=== PATIENT | male | born 1985 | race African-American/Black ===

== ENCOUNTER 2019-12-22 10:25 | Emergency (ER) | payer BC, MEDICAID, OTHER ==
[2019-12-22 10:43] VITALS: BP 213/136; PULSE 116
[2019-12-22] MEDS ORDERED: Ondansetron 4 MG/2 ML SDV IVPUSH ONE ×2 (10:48→14:17)
[2019-12-22] MEDS ORDERED: Sodium Chloride 0.9% 10 ML Syringe FLUSH PRN (10:48)
[2019-12-22] MEDS ORDERED: Sodium Chloride 0.9% 1,000 ML IV STA (10:48)
[2019-12-22] MEDS ORDERED: HYDROmorphone 1 MG/ML Syringe IVPUSH ONE (10:50)
[2019-12-22] MEDS ORDERED: Pantoprazole 40 MG Vial IVPUSH ONE (10:50)
[2019-12-22] MEDS ORDERED: Metoclopramide 10 MG/2 ML SDV IVPUSH ONE (12:42)
[2019-12-22] MEDS: Sodium Chloride 0.9% 1,000 ML IV ONE ×2 (12:51→16:46)
--- NOTE | 2019-12-22 13:21 | CT ---
CT abdomen and pelvis Technique: Multiple axial sections were obtained from above the dome of the diaphragm inferiorly through the pubic symphysis. Intravenous and oral contrast was not utilized. Lack of contrast slightly decreases details of the exam. Comparison: No prior abdominal imaging. Findings: Visualized lung bases show nothing acute. Small hiatal hernia is noted. Liver contains no focal parenchymal abnormality. Spleen appears within normal limits. Adrenal glands show no nodule. Visualized portion of the pancreas show no discrete abnormality. Kidneys show no abnormal calcifications or hydronephrosis. Aorta shows no aneurysm. Gallbladder contains no calcified gallstones. No retroperitoneal adenopathy or mesenteric abnormalities are seen. No pelvic mass or adenopathy is seen. Appendix is felt to be partially visualized and appears to be normal in size. No free fluid or inflammatory change is seen. Nonspecific wall thickening is noted within the bladder. Bone window settings were reviewed which shows no acute osseous finding. Impression: 1. Nonspecific wall thickening within the bladder. 2. Small hiatal hernia. 3. No additional abnormality is appreciated on noncontrast CT study of the abdomen and pelvis. Diagnostic code #3 This report was dictated in MDT
[2019-12-22] MEDS ORDERED: Morphine 4 MG/ML Syringe IVPUSH ONE (13:28)
--- NOTE | 2019-12-22 14:26 | EDM.PDOC ---
ED HPI GENERAL MEDICAL PROBLEM - General Chief Complaint: Gastrointestinal Problem Stated Complaint: VOMITING BLOOD Time Seen by Provider: 12/22/19 10:45 Source of Information: Reports: Patient History Limitations: Reports: No Limitations - History of Present Illness INITIAL COMMENTS - FREE TEXT/NARRATIVE: The patient presents with abdominal pain, nausea and vomiting. He said the emesis looked coffee ground. He has a history of type I diabetes and gastroperesis. He was seen in [place] 3 days ago for the same and he had some fluids and meds and a work up and he did well. He was sent home. He has reglan at home for the nausea and vomiting. He took a couple doses this morning when this started. He has no fever but he has chills. He has no chest pain, shortness of breath or cough. He did see GI a couple weeks ago in [place]. He is going to get an EGD soon. Onset: Gradual Duration: Day(s): Location: Reports: Abdomen Quality: Reports: Sharp Severity: Moderate Improves with: Reports: None Worsens with: Reports: None Associated Symptoms: Reports: Nausea/Vomiting. Denies: Chest Pain, Cough, Fever/Chills, Headaches, Shortness of Breath - Related Data Allergies Allergy/AdvReac Type Severity Reaction Status Date / Time shrimp Allergy Severe Swelling Verified 12/19/19 22:17 CDT iodine Allergy Unknown Anaphylactic Verified 12/19/19 22:17 CDT Shock Penicillins Allergy Unknown Anaphylactic Verified 12/19/19 22:17 CDT Shock shellfish derived Allergy Anaphylactic Verified 12/19/19 22:17 CDT Shock gluten Allergy Severe Muscle Uncoded 12/22/19 10:42 Aches Home Meds: Home Meds Doxazosin [Cardura] 2 mg PO BEDTIME 07/09/19 [History] Metoprolol Succinate 200 mg PO DAILY 07/09/19 [History] Torsemide 20 mg PO DAILY 07/09/19 [History] atorvaSTATin [Lipitor] 80 mg PO BEDTIME 07/09/19 [History] Insulin Aspart [NovoLOG] 0 unit SUBCUT .UP TO 60 UN DAILY 07/10/19 [History] Metoclopramide [Reglan] 5 mg PO TIDAC #90 tablet 07/20/19 [Rx] Pantoprazole [ProTONIX] 40 mg PO DAILY #30 tab.cr 07/20/19 [Rx] Ondansetron [Zofran ODT] 4 mg PO Q6H PRN #20 tab.dis 09/13/19 [Rx] Aspirin [Adult Low Dose Aspirin EC] 81 mg PO DAILY 09/16/19 [History] Enalapril Maleate 40 mg PO DAILY 09/16/19 [History] Insulin Glarg,Human.Rec.Analog [Lantus] 50 mg SUBCUT BEDTIME 09/16/19 [History] Iron Ag,Ps/C/Fa6/B12/Zn/SA/Sto [Niferex Tablet] 150 mg PO BID 09/16/19 [History] Sertraline [Zoloft] 50 mg PO DAILY 09/16/19 [History] Spironolactone [Aldactone] 25 mg PO BID 09/16/19 [History] Sucralfate 1 gm PO QIDACANDBED 09/16/19 [History] amLODIPine Besylate [Amlodipine Besylate] 10 mg PO DAILY 09/16/19 [History] hydrALAZINE [Apresoline] 25 mg PO TID 09/16/19 [History] hydroCHLOROthiazide [Hydrochlorothiazide] 25 mg PO DAILY 09/16/19 [History] Omeprazole Magnesium [Prilosec Otc] 20 mg PO BID #30 tablet. 10/09/19 [Rx] haloperidoL [Haldol] 5 mg PO Q12HR #60 tab 11/25/19 [Rx] Hydrocodone/Acetaminophen [Hydrocodone-Acetamin 5-325 mg] 1 - 2 each PO Q6HR PRN #10 tablet 12/22/19 [Rx] Past Medical History - Past Health History Medical/Surgical History: Denies Medical/Surgical History HEENT History: Reports: Impaired Vision Other HEENT History: blind right eye Cardiovascular History: Reports: High Cholesterol, Hypertension Respiratory History: Reports: None Gastrointestinal History: Reports: Gastritis, GERD, Hiatal Hernia, Other (See Below) Other Gastrointestinal History: h/o gastric ulcers, h/o hiatal hernia; gastroparesis Genitourinary History: Reports: Chronic Renal Insuffiency, Diabetic Nephropathy Musculoskeletal History: Reports: Amputation, Other (See Below) Other Musculoskeletal History: RLE Neurological History: Reports: Neuropathy, Peripheral Other Neuro History: stroke 2019 Psychiatric History: Reports: Anxiety Endocrine/Metabolic History: Reports: Diabetes, Type I Other Endocrine/Metabolic History: brittle diabetic. 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 - Past Surgical History Head Surgeries/Procedures: Reports: None HEENT Surgical History: Reports: None Cardiovascular Surgical History: Reports: None Respiratory Surgical History: Reports: None GI Surgical History: Reports: None Male Surgical History: Reports: None Endocrine Surgical History: Reports: None Neurological Surgical History: Reports: None Musculoskeletal Surgical History: Reports: Other (See Below) Other Musculoskeletal Surgeries/Procedures:: right BKA Oncologic Surgical History: Reports: None Dermatological Surgical History: Reports: None Social & Family History - Family History Family Medical History: Noncontributory Cardiac: Reports: High Cholesterol, Hypertension OBGYN: Reports: Neurological: Reports: None Psychiatric: Reports: Anxiety - Tobacco Use Smoking Status *Q: Never Smoker - Caffeine Use Caffeine Use: Reports: None Other Caffeine Use: daily Caffeine Use Comment: patient is uncooperated - Living Situation & Occupation Living situation: Reports: Single Occupation: Employed (Currently unemployed.) ED ROS GENERAL - Review of Systems Review Of Systems: See Below Constitutional: Reports: Chills HEENT: Reports: No Symptoms Respiratory: Reports: No Symptoms Cardiovascular: Reports: No Symptoms Endocrine: Reports: No Symptoms GI/Abdominal: Reports: Abdominal Pain, Nausea, Vomiting. Denies: Diarrhea : Reports: No Symptoms Musculoskeletal: Reports: No Symptoms ED EXAM, GI/ABD - Physical Exam Exam: See Below Exam Limited By: No Limitations General Appearance: Alert, No Apparent Distress Ears: Normal External Exam Nose: Normal Inspection Head: Atraumatic, Normocephalic Neck: Normal Inspection Respiratory/Chest: No Respiratory Distress, Lungs Clear, Normal Breath Sounds Cardiovascular: Regular Rate, Rhythm, No Edema, No Murmur GI/Abdominal Exam: Soft, No Organomegaly, No Mass, Tender (Moderate upper abdominal pain) Back Exam: Normal Inspection Extremities: Normal Inspection Course - Vital Signs Last Recorded V/S: Last Vital Signs Temp 97.8 F 12/22/19 10:39 Pulse 116 H 12/22/19 10:39 Resp 24 H 12/22/19 10:39 BP 213/136 H 12/22/19 10:39 Pulse Ox 100 12/22/19 10:39 - Orders/Labs/Meds Orders: Active Orders 24 hr Category Date Time Status Peripheral IV Care [RC] . DIRECTED Care 12/22/19 10:48 Active Sodium Chloride 0.9% [Saline Flush] Med 12/22/19 10:48 Active 10 ml FLUSH ASDIRECTED PRN ED Antiemetic Medication Reflex [OM.PC] Stat Oth 12/22/19 10:48 Ordered Peripheral IV Insertion Adult [OM.PC] Stat Oth 12/22/19 10:48 Ordered Medication Orders Sodium Chloride (Saline Flush) 10 ml FLUSH ASDIRECTED PRN PRN Reason: Keep Vein Open Labs: Laboratory Tests 12/22/19 12/22/19 12/22/19 Range/Units 10:43 10:43 10:43 WBC 11.14 H (4.23-9.07) K/mm3 RBC 5.41 (4.63-6.08) M/mm3 Hgb 11.2 L (13.7-17.5) gm/dl Hct 35.4 L (40.1-51.0) % MCV 65.4 L (79.0-92.2) fl MCH 20.7 L (25.7-32.2) pg MCHC 31.6 L (32.2-35.5) g/dl RDW Std Deviation 39.8 (35.1-43.9) fL Plt Count 571 H (163-337) K/mm3 MPV 10.8 (9.4-12.3) fl Neut % (Auto) 77.3 H (34.0-67.9) % Lymph % (Auto) 16.9 L (21.8-53.1) % Miller % (Auto) 4.4 L (5.3-12.2) % Eos % (Auto) 0.6 L (0.8-7.0) Baso % (Auto) 0.5 (0.1-1.2) % Neut # (Auto) 8.61 H (1.78-5.38) K/mm3 Lymph # (Auto) 1.88 (1.32-3.57) K/mm3 Miller # (Auto) 0.49 (0.30-0.82) K/mm3 Eos # (Auto) 0.07 (0.04-0.54) K/mm3 Baso # (Auto) 0.06 (0.01-0.08) K/mm3 Manual Slide Review Abnormal smear PT 10.5 (9.7-12.0) SECONDS INR 0.96 APTT 30 (22-31) SECONDS VBG pH (7.30-7.40) Sodium 139 (136-145) mEq/L Potassium 4.4 (3.5-5.1) mEq/L Chloride 101 (98-107) mEq/L Carbon Dioxide 21 (21-32) mEq/L Anion Gap 21.4 H (5-15) BUN 32 H (7-18) mg/dL Creatinine 3.5 H (0.7-1.3) mg/dL Est Cr Clr Drug Dosing 30.02 mL/min Estimated GFR (MDRD) 25 (>60) mL/min BUN/Creatinine Ratio 9.1 L (14-18) Glucose 274 H (74-106) mg/dL POC Glucose (70-105) mg/dL Serum Osmolality 314 H (280-300) mosm/kg Calcium 8.9 (8.5-10.1) mg/dL Total Bilirubin 0.4 (0.2-1.0) mg/dL AST 37 (15-37) U/L ALT 23 (16-63) U/L Alkaline Phosphatase 110 (46-116) U/L Total Protein 7.9 (6.4-8.2) g/dl Albumin 3.2 L (3.4-5.0) g/dl Globulin 4.7 gm/dL Albumin/Globulin Ratio 0.7 L (1-2) Lipase 28 L (73-393) U/L Ketones (0.0-0.3) mM 12/22/19 12/22/19 12/22/19 Range/Units 10:43 11:23 15:28 WBC (4.23-9.07) K/mm3 RBC (4.63-6.08) M/mm3 Hgb (13.7-17.5) gm/dl Hct (40.1-51.0) % MCV (79.0-92.2) fl MCH (25.7-32.2) pg MCHC (32.2-35.5) g/dl RDW Std Deviation (35.1-43.9) fL Plt Count (163-337) K/mm3 MPV (9.4-12.3) fl Neut % (Auto) (34.0-67.9) % Lymph % (Auto) (21.8-53.1) % Miller % (Auto) (5.3-12.2) % Eos % (Auto) (0.8-7.0) Baso % (Auto) (0.1-1.2) % Neut # (Auto) (1.78-5.38) K/mm3 Lymph # (Auto) (1.32-3.57) K/mm3 Miller # (Auto) (0.30-0.82) K/mm3 Eos # (Auto) (0.04-0.54) K/mm3 Baso # (Auto) (0.01-0.08) K/mm3 Manual Slide Review PT (9.7-12.0) SECONDS INR APTT (22-31) SECONDS VBG pH 7.41 H (7.30-7.40) Sodium (136-145) mEq/L Potassium (3.5-5.1) mEq/L Chloride (98-107) mEq/L Carbon Dioxide (21-32) mEq/L Anion Gap (5-15) BUN (7-18) mg/dL Creatinine (0.7-1.3) mg/dL Est Cr Clr Drug Dosing mL/min Estimated GFR (MDRD) (>60) mL/min BUN/Creatinine Ratio (14-18) Glucose (74-106) mg/dL POC Glucose 310 H (70-105) mg/dL Serum Osmolality (280-300) mosm/kg Calcium (8.5-10.1) mg/dL Total Bilirubin (0.2-1.0) mg/dL AST (15-37) U/L ALT (16-63) U/L Alkaline Phosphatase (46-116) U/L Total Protein (6.4-8.2) g/dl Albumin (3.4-5.0) g/dl Globulin gm/dL Albumin/Globulin Ratio (1-2) Lipase (73-393) U/L Ketones 3.17 (0.0-0.3) mM Meds: Medications Generic Name Dose Route Start Last Admin Trade Name Freq PRN Reason Stop Dose Admin Sodium Chloride 10 ml 12/22/19 10:48 Saline Flush FLUSH ASDIRECTED PRN Keep Vein Open Discontinued Medications Generic Name Dose Route Start Last Admin Trade Name Freq PRN Reason Stop Dose Admin Hydromorphone HCl 1 mg 12/22/19 10:50 12/22/19 11:10 Dilaudid IVPUSH 12/22/19 10:51 1 mg ONETIME ONE Administration Sodium Chloride 1,000 mls @ 1,000 mls/hr 12/22/19 10:48 12/22/19 11:00 Normal Saline IV 12/22/19 11:47 1,000 mls/hr .BOLUS STA Administration Sodium Chloride 1,000 mls @ 1,000 mls/hr 12/22/19 12:42 12/22/19 12:51 Normal Saline IV 12/22/19 13:41 1,000 mls/hr ONETIME ONE Administration Insulin Human Regular 6 unit 12/22/19 15:37 12/22/19 15:45 Humulin R SUBCUT 12/22/19 15:38 6 unit ONETIME ONE Administration Metoclopramide HCl 10 mg 12/22/19 12:42 12/22/19 12:50 Reglan IVPUSH 12/22/19 12:43 10 mg ONETIME ONE Administration Morphine Sulfate 2 mg 12/22/19 13:28 12/22/19 13:34 Morphine IVPUSH 12/22/19 13:29 2 mg ONETIME ONE Administration Ondansetron HCl 4 mg 12/22/19 10:48 12/22/19 11:11 Zofran IVPUSH 12/22/19 10:49 4 mg ONETIME ONE Administration Ondansetron HCl 4 mg 12/22/19 14:17 12/22/19 15:23 Zofran IVPUSH 12/22/19 14:18 4 mg ONETIME ONE Administration Pantoprazole Sodium 80 mg 12/22/19 10:50 12/22/19 11:12 Protonix Iv IVPUSH 12/22/19 10:51 80 mg BOLUS ONE Administration Promethazine HCl 25 mg 12/22/19 15:29 12/22/19 15:44 Phenergan IM 12/22/19 15:30 25 mg ONETIME ONE Administration - Re-Assessments/Exams Free Text/Narrative Re-Assessment/Exam: 12/22/19 14:27 I ordered an IV NS 1L bolus, zofran 4mg IV, dilaudid 1mg IV, labs, and a CT of his abdomen and pelvis. 12/22/19 14:29 His WBC is elevated at 11.14. His Hgb is low at 11.2. His platelets are elevated at 571. His PT and PTT are normal. His pH is 7.41. His anion gap is elevated at 21.4. His creatinine is elevated at 3.5. 12/22/19 16:[address] shows nonspecific wall thickening within the bladder. Small hiatal hernia. No additional abnormality is appreciated on noncontrast CT study of the abdomen and pelvis. He still had pain and nausea. I gave him morphine and reglan. I then ordered some phenergan. His blood sugar was 310 so I ordered insulin R 6 units. 12/22/19 16:44 He feels better and would like to go. I will discharge him home. Departure - Departure Time of Disposition: 16:45 Disposition: Home, Self-Care 01 Condition: Good Clinical Impression: History of - diabetes mellitus Abdominal pain Qualifiers: Abdominal location: generalized Qualified Code(s): R10.84 - Generalized abdominal pain - Discharge Information *PRESCRIPTION DRUG MONITORING PROGRAM REVIEWED*: No *COPY OF PRESCRIPTION DRUG MONITORING REPORT IN PATIENT JE: No Prescriptions: Hydrocodone/Acetaminophen [Hydrocodone-Acetamin 5-325 mg] 1 - 2 each PO Q6HR PRN #10 tablet PRN Reason: Pain Referrals: PCP,Not In Area [Primary Care Provider] - Forms: ED Department Discharge Additional Instructions: Drink plenty of fluids. Take reglan every 6 hours as needed for nausea or vomiting. Follow up with your doctor. Please return if you are worse. Sepsis Event Note (ED) - Evaluation Sepsis Screening Result: No Definite Risk - Focused Exam Vital Signs: Vital Signs Temp Pulse Resp BP Pulse Ox 12/22/19 10:39 97.8 F 116 H 24 H 213/136 H 100 - My Orders Last 24 Hours: My Active Orders 12/22/19 10:48 Peripheral IV Care [RC] . DIRECTED Sodium Chloride 0.9% [Saline Flush] 10 ml FLUSH ASDIRECTED PRN ED Antiemetic Medication Reflex [OM.PC] Stat Peripheral IV Insertion Adult [OM.PC] Stat - Assessment/Plan Last 24 Hours: My Active Orders 12/22/19 10:48 Peripheral IV Care [RC] . DIRECTED Sodium Chloride 0.9% [Saline Flush] 10 ml FLUSH ASDIRECTED PRN ED Antiemetic Medication Reflex [OM.PC] Stat Peripheral IV Insertion Adult [OM.PC] Stat
[2019-12-22] MEDS ORDERED: Promethazine 25 MG/ML SDV IM ONE (15:29)
[2019-12-22] MEDS ORDERED: Insulin Regular, Human 100 Units/ML 3 ML Vial SUBCUT ONE (15:37)
== END 2019-12-22 17:05 | disposition home or self-care (01) ==
LOC: JD.ED 10:25
DX: R10.84 Generalized abdominal pain (principal); R11.2 Nausea with vomiting, unspecified; I12.9 Hypertensive chronic kidney disease with stage 1 through stage 4 chronic kidney disease, or unspecified chronic kidney disease; E10.22 Type 1 diabetes mellitus with diabetic chronic kidney disease; N18.9 Chronic kidney disease, unspecified; E10.21 Type 1 diabetes mellitus with diabetic nephropathy; E10.42 Type 1 diabetes mellitus with diabetic polyneuropathy; E78.00 Pure hypercholesterolemia, unspecified; K21.9 Gastro-esophageal reflux disease without esophagitis; F41.9 Anxiety disorder, unspecified; D64.9 Anemia, unspecified; Z79.82 Long term (current) use of aspirin; Z79.899 Other long term (current) drug therapy; Z88.0 Allergy status to penicillin; Z91.018 Allergy to other foods; Z91.013 Allergy to seafood; Z88.8 Allergy status to other drugs, medicaments and biological substances
CPT/HCPCS: 36415; 74176; 80053; 82009; 82800; 82962; 83690; 83930; 85025; 85610; 85730; 96361; 96372; 96374; 96375; 96376; 99284; C9113; J1170; J1815; J2270; J2405; J2550; J2765; J7030

== ENCOUNTER 2021-01-11 09:57 | Emergency (ER) | payer MEDICARE, MEDICAID, BC | END 2021-01-11 10:08 | disposition left against medical advice (07) | LOC: JD.ED 09:57 | DX: R06.00 Dyspnea, unspecified (principal); Z53.21 Procedure and treatment not carried out due to patient leaving prior to being seen by health care provider ==

== ENCOUNTER 2021-01-12 00:02 | Emergency (ER) | payer MEDICARE, MEDICAID ==
[2021-01-12 00:16] VITALS: BP 197/121; PULSE 108
[2021-01-12] MEDS ORDERED: Metoclopramide 10 MG/2 ML SDV IVPUSH STA (01:17)
[2021-01-12] MEDS ORDERED: HYDROmorphone 1 MG/ML Syringe IVPUSH ONE ×2 (01:17→03:03)
[2021-01-12] MEDS ORDERED: SODIUM CHLORIDE 0.9% IV STA (01:18)
[2021-01-12] MEDS ORDERED: ERYTHROMYCIN LACTOBIONATE IV STA (01:18)
--- NOTE | 2021-01-12 01:27 | EDM.PDOC ---
ED HPI GENERAL MEDICAL PROBLEM - General Chief Complaint: Gastrointestinal Problem Stated Complaint: [facility] Time Seen by Provider: 01/12/21 00:49 Source of Information: Reports: Patient History Limitations: Reports: No Limitations - History of Present Illness INITIAL COMMENTS - FREE TEXT/NARRATIVE: Mr. Jarquin is a pleasant 35-year-old man with a past medical history significant for type 1 diabetes and end-stage renal disease, who has been on hemodialysis every Saturday, , and Saturday for only about 2 months, who lives in [place], but states that he is staying in a hotel here in [place] in order to receive his dialysis here, who now presents the ED by EMS after developing burning periumbilical abdominal pain, nausea, and vomiting yesterday afternoon, 01/11/2021. He states that the abdominal pain waxes and wanes, and that he has not identified any modifiers. He states that he noticed some specks of blood in his vomitus as early as yesterday afternoon, which is what prompted him to come to the ED. No recent fever, constipation, diarrhea, or urinary symptoms. The patient acknowledges that he has had virtually identical symptoms countless times over the past 10 years, approximately. He has a history of gastroparesis, although he reports that he was hospitalized in [place] a few months ago, and that he underwent an EGD and colonoscopy at that time, which he says he was told was normal. He states that he has seen a [employer] in the past, and was prescribed metoclopramide (Reglan), pantoprazole, Zofran, and promethazine. It does not sound like the patient has taken his metoclopramide or promethazine for the past couple of weeks, but he states that he took his pantoprazole and Zofran twice yesterday. The patient also reports that in the past his pain has been treated with pain medications, and that he was on Darvocet up until a couple of weeks ago, but that he self-discontinued it, because he does not want to be perceived as a drug addict (please note that the FDA banned Darvocet, Darvon, and other medications containing propoxyphene in 2009, therefore it is likely that the patient was on oral Dilaudid or some other similar sounding opioid). Here in the ED, the patient's initial BP is found to be substantially elevated at 197/121, with tachycardia 108. He is afebrile, saturating 100% on room air. Without treatment, the patient's BP dropped to 163/70. He appears to be uncomfortable, crying and wailing. Prior to yesterday afternoon, the patient denies having a recent fever, chills, sore throat, ear pain, nasal or sinus congestion, cough, dyspnea, chest pain, palpitations, nausea, vomiting, constipation, diarrhea, abdominal pain, urinary symptoms, recent weight gain or weight loss, recent bloody bowel movements or black bowel movements, recent joint aches, headaches, or rashes. The patient's PCP is Dr. Kingsley Hayden, in [place]. He does not recall the name of his Pathology Technician, here in [place]. Treatments HISTOLOGY SPECIALIST: Reports: IV/IO, Other (see below) Other Treatments HISTOLOGY SPECIALIST: Dilaudid 0.5 mg IV Abdominal Pain Score (Numeric/FACES): 8 - Related Data Allergies Allergy/AdvReac Type Severity Reaction Status Date / Time shrimp Allergy Severe Swelling Verified 01/12/21 00:14 iodine Allergy Unknown Anaphylactic Verified 01/12/21 00:14 Shock Penicillins Allergy Unknown Anaphylactic Verified 01/12/21 00:14 Shock haloperidol [From Haldol] Allergy Cannot Verified 01/12/21 00:14 Remember shellfish derived Allergy Anaphylactic Verified 01/12/21 00:14 Shock gluten Allergy Severe Muscle Uncoded 01/12/21 00:14 Aches Home Meds: Home Meds Insulin Aspart [NovoLOG] 0 unit SUBCUT .UP TO 60 UN DAILY 07/10/19 [History] Insulin Glarg,Human.Rec.Analog [Lantus] 50 mg SUBCUT DAILY 09/16/19 [History] Furosemide 80 mg PO DAILY 08/09/20 [History] Pantoprazole Sodium [Protonix] 40 mg PO BID 08/09/20 [History] Labetalol [Normodyne] 600 mg PO QID 10/12/20 [History] NIFEdipine [Nifedipine ER] 60 mg PO Q8H 10/12/20 [History] Calcium Acetate 667 mg PO TID 01/12/21 [History] Past Medical History HEENT History: Reports: Impaired Vision (blind right eye) Cardiovascular History: Reports: High Cholesterol, Hypertension Gastrointestinal History: Reports: Gastritis, GERD, Hiatal Hernia, PUD, Other (See Below) (Gastroparesis) Genitourinary History: Reports: Dialysis (Q , , Sa, since around October 2019) Neurological History: Reports: Neuropathy, Diabetic Psychiatric History: Reports: Anxiety (untreated) Endocrine/Metabolic History: Reports: Diabetes, Type I - Infectious Disease History Infectious Disease History: Reports: Chicken Pox, MRSA, Novel Coronavirus (Feb 2020) - Past Surgical History Cardiovascular Surgical History: Reports: Vascular Surgery (LUE AVF) GI Surgical History: Reports: Colonoscopy (x 1), EGD (x 5 or 6) Musculoskeletal Surgical History: Reports: Amputation (right BKA) Social & Family History - Tobacco Use Tobacco Use Status *Q: Former Tobacco User Years of Tobacco use: 11 Packs/Tins Daily: 1 Month/Year Tobacco Last Used: Quit 2015 Tobacco Use Comment: Started smoking 2004 - Caffeine Use Caffeine Use: Reports: None Other Caffeine Use: daily Caffeine Use Comment: patient is uncooperated - Alcohol Use Alcohol Use History: No - Recreational Drug Use Recreational Drug Use: No - Living Situation & Occupation Living situation: Reports: Single, with Family (Cousin) Occupation: Unemployed ED ROS GENERAL - Review of Systems Review Of Systems: Comprehensive ROS is negative, except as noted in HPI. ED EXAM, GI/ABD - Physical Exam Exam: See Below Exam Limited By: No Limitations General Appearance: Alert, WD/WN, No Apparent Distress Eyes: Bilateral: Normal Appearance, EOMI Ears: Normal External Exam, Hearing Grossly Normal Nose: Normal Inspection Throat/Mouth: Normal Inspection, Normal Lips, Normal Voice, No Airway Compromise Head: Atraumatic, Normocephalic Neck: Normal Inspection, Full Range of Motion Respiratory/Chest: No Respiratory Distress, Lungs Clear, Normal Breath Sounds, No Accessory Muscle Use, Other (Right chest HD catheter) Cardiovascular: Normal Peripheral Pulses, Regular Rate, Rhythm, No Edema, No Gallop, No JVD, No Murmur, No Rub GI/Abdominal Exam: Normal Bowel Sounds, Soft, Non-Tender (including periumbilically), No Organomegaly, No Distention, No Abnormal Bruit, No Mass Back Exam: Normal Inspection, Full Range of Motion, NT Extremities: Normal Inspection, Normal Range of Motion, No Pedal Edema, Normal Capillary Refill, Other (Good thrill Lt forearm AVF. Right BKA) Neurological: Alert, Oriented, Normal Cognition, No Motor/Sensory Deficits Psychiatric: Normal Affect Skin Exam: Warm, Dry, Intact, Normal Color, No Rash Course - Vital Signs Last Recorded V/S: Last Vital Signs Temp 36.3 C 01/12/21 00:14 Pulse 108 H 01/12/21 00:14 Resp 20 01/12/21 00:14 BP 197/121 H 01/12/21 00:14 Pulse Ox 100 01/12/21 00:14 - Orders/Labs/Meds Labs: Laboratory Tests 01/12/21 01/12/21 Range/Units 01:37 01:37 WBC 9.85 H (4.23-9.07) K/mm3 RBC 5.85 (4.63-6.08) M/mm3 Hgb 13.2 L D (13.7-17.5) gm/dl Hct 40.6 (40.1-51.0) % MCV 69.4 L D (79.0-92.2) fl MCH 22.6 L (25.7-32.2) pg MCHC 32.5 (32.2-35.5) g/dl RDW Std Deviation 45.0 H (35.1-43.9) fL Plt Count 336 D (163-337) K/mm3 MPV Not Reportable Neutrophils % (Manual) 68 H (40-60) % Band Neutrophils % 0 (0-10) % Lymphocytes % (Manual) 31 (20-40) % Atypical Lymphs % 0 % Monocytes % (Manual) 0 L (2-10) % Eosinophils % (Manual) 1 (0.8-7.0) % Basophils % (Manual) 0 L (0.2-1.2) Platelet Estimate Adequate Hypochromasia 1+ slight Microcytosis 1+ slight Ovalocytes 1+ slight Sodium 137 (136-145) mEq/L Potassium 4.3 (3.5-5.1) mEq/L Chloride 97 L (98-107) mEq/L Carbon Dioxide 26 (21-32) mEq/L Anion Gap 18.3 H (5-15) BUN 56 H (7-18) mg/dL Creatinine 8.5 H D (0.7-1.3) mg/dL Est Cr Clr Drug Dosing TNP Estimated GFR (MDRD) 9 (>60) mL/min BUN/Creatinine Ratio 6.6 L (14-18) Glucose 334 H (70-99) mg/dL Calcium 7.7 L (8.5-10.1) mg/dL Total Bilirubin 0.4 (0.2-1.0) mg/dL AST 27 (15-37) U/L ALT 23 (16-63) U/L Alkaline Phosphatase 109 (46-116) U/L Total Protein 7.4 (6.4-8.2) g/dl Albumin 3.2 L (3.4-5.0) g/dl Globulin 4.2 gm/dL Albumin/Globulin Ratio 0.8 L (1-2) Meds: Medications Discontinued Medications Generic Name Dose Route Start Last Admin Trade Name Freq PRN Reason Stop Dose Admin Hydromorphone HCl 1 mg 01/12/21 01:17 01/12/21 01:35 Hydromorphone 1 Mg/Ml Syringe IVPUSH 01/12/21 01:18 1 mg ONETIME ONE Administration Hydromorphone HCl 1 mg 01/12/21 03:03 Hydromorphone 1 Mg/Ml Syringe IVPUSH 01/12/21 03:04 ONETIME ONE Hydromorphone HCl 1 mg 01/12/21 03:34 01/12/21 03:38 Hydromorphone 1 Mg/Ml Syringe IM 01/12/21 03:35 1 mg ONETIME ONE Administration Sodium Chloride 1,000 mls @ 100 mls/hr 01/12/21 01:30 01/12/21 01:37 Normal Saline IV 100 mls/hr ASDIRECTED MAT Administration Erythromycin Lactobionate 235 100 mls @ 2.22 mls/hr 01/12/21 01:18 01/12/21 01:37 mg/ Sodium Chloride IV 01/13/21 22:20 2.22 mls/hr ONETIME STA Administration Insulin Human Regular 7 unit 01/12/21 03:05 Insulin Regular, Human 100 Units/Ml 3 Ml Vial IV 01/12/21 03:06 ONETIME STA Insulin Human Regular 7 unit 01/12/21 03:34 01/12/21 03:38 Insulin Regular, Human 100 Units/Ml 3 Ml Vial SUBCUT 01/12/21 03:35 7 unit ONETIME STA Administration Metoclopramide HCl 10 mg 01/12/21 01:17 01/12/21 01:35 Metoclopramide 10 Mg/2 Ml Sdv IVPUSH 01/12/21 01:18 10 mg ONETIME STA Administration - Re-Assessments/Exams Free Text/Narrative Re-Assessment/Exam: 01/12/21 01:24 As above, the patient developed periumbilical abdominal pain with nausea and vomiting and some specks of blood in his emesis yesterday afternoon. This has been a recurrent problem over the past 10 years, of unknown etiology, however, the patient has gastroparesis, which I suspect is the cause. On examination, th e patient has a soft abdomen with normoactive bowel sounds and no tenderness, even to the periumbilical area. This is also consistent with gastroparesis. He has had numerous CT scans of his abdomen in the past, which have not found any problems, and his current presentation is virtually identical to previous presentations, therefore I do not see the need to repeat a CT scan today. I have ordered a CBC and CMP, just to make sure that there are no abnormalities that need to be emergently corrected, and in the meantime, the patient will be given some IV Dilaudid, IV Reglan, IV erythromycin, and gentle IV fluid. It is my hope that we can stabilize the patient so that he can be discharged this morning, to attend his usually scheduled hemodialysis at 12:30. If he requires admission, even though he ordinarily gets his dialysis here in [place], he would need to be transferred to [place]. 01/12/21 03:03 The patient CBC is remarkable for mild leukocytosis of 9.85, but with 0% bandemia. His Hgb is slightly depressed at 13.2, with a Hct normal at 40.6, and the remainder of his CBC being unremarkable. His CMP is remarkable for an anion gap mildly elevated at 18.3, but with a bicarbonate normal at 26. His BUN/Cr are elevated at 56/8.5, and his blood glucose is elevated at 334, with the remainder of his CMP being unremarkable. Based on the above, I will order 7 units of regular insulin IV. The patient is still complaining of pain. I will order additional Dilaudid. 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 The patient had denied prior drug use to me, but I was unaware that his chart indicates prior drug abuse. This may indicate a low pain tolerance. I have canceled the previously ordered IV Dilaudid and IV insulin, and ordered IM Dilaudid and SC in sulin in its place. 01/12/21 04:04 Despite 2 mg of Dilaudid, IV Reglan, and IV erythromycin, the patient is still complaining of pain, however, I think that at this point we have exhausted what we can do from an emergency standpoint for this chronic/recurrent issue. I am recommending that he do his best to keep his blood sugars under control, eat small, frequent meals low in fat and that contains only soluble fiber, take his previously prescribed medications as prescribed, and follow-up with his PCP. I will discharge him home. He is scheduled for hemodialysis at 12:30 this afternoon. Departure - Departure Time of Disposition: 04:05 Disposition: Home, Self-Care 01 Condition: Good Clinical Impression: Gastroparesis diabeticorum, Abdominal pain, Nausea & vomiting, Hyperglycemia due to type 1 diabetes mellitus - Discharge Information *PRESCRIPTION DRUG MONITORING PROGRAM REVIEWED*: Not Applicable *COPY OF PRESCRIPTION DRUG MONITORING REPORT IN PATIENT JE: Not Applicable Instructions: Gastroparesis Referrals: Adilene Owens [Primary Care Provider] - Kingsley Murphy MD [Ordering Only Provider] - Forms: ED Department Discharge Additional Instructions: You were seen in the emergency room for abdominal pain, nausea, and vomiting, with some specks of blood in the vomit, that developed yesterday afternoon, but that has been coming and going for the past 10 years. Work-up in the ER included some blood tests, which found your blood sugar to be elevated at 334. Based on your history and physical examination, your symptoms are due to gastroparesis. You were treated with IV Dilaudid, IV metoclopramide (Reglan), IV erythromycin, IV fluid, and some IV insulin. We recommend that you continue to take your currently prescribed medications as prescribed. That you keep your blood sugars under good control. We recommend that you follow-up with your PCP, Dr. Kingsley Murphy, for further evaluation that may include referral to a Gastric Surgeon. You may attend your currently scheduled hemodialysis at 12:30 this afternoon. If any other problems, please do not hesitate to return to the ER. Sepsis Event Note (ED) - Evaluation Sepsis Screening Result: No Definite Risk
[2021-01-12] MEDS ORDERED: Sodium Chloride 0.9% 1,000 ML IV SCH (01:30)
[2021-01-12] MEDS ORDERED: Insulin Regular, Human 100 Units/ML 3 ML Vial IV STA (03:05)
[2021-01-12] MEDS ORDERED: HYDROmorphone 1 MG/ML Syringe IM ONE (03:34)
[2021-01-12] MEDS ORDERED: Insulin Regular, Human 100 Units/ML 3 ML Vial SUBCUT STA (03:34)
== END 2021-01-12 04:22 | disposition home or self-care (01) ==
LOC: JD.ED 00:02
DX: E10.43 Type 1 diabetes mellitus with diabetic autonomic (poly)neuropathy (principal); K31.84 Gastroparesis; E10.65 Type 1 diabetes mellitus with hyperglycemia; E78.00 Pure hypercholesterolemia, unspecified; I12.9 Hypertensive chronic kidney disease with stage 1 through stage 4 chronic kidney disease, or unspecified chronic kidney disease; E10.22 Type 1 diabetes mellitus with diabetic chronic kidney disease; E10.40 Type 1 diabetes mellitus with diabetic neuropathy, unspecified; N18.9 Chronic kidney disease, unspecified; Z79.4 Long term (current) use of insulin; Z79.899 Other long term (current) drug therapy; Z87.891 Personal history of nicotine dependence; Z91.018 Allergy to other foods; Z88.0 Allergy status to penicillin; Z88.5 Allergy status to narcotic agent; Z91.013 Allergy to seafood; Z88.8 Allergy status to other drugs, medicaments and biological substances; Z99.2 Dependence on renal dialysis
CPT/HCPCS: 36415; 80053; 85007; 85027; 96365; 96372; 96375; 99284; 99284-25; J1170; J1364; J1815-GY; J2765; J7030

== ENCOUNTER 2021-01-12 21:25 | Emergency (ER) | payer MEDICARE, MEDICAID ==
[2021-01-12] MEDS ORDERED: LORazepam 2 MG/ML SDV IVPUSH ONE (21:35)
[2021-01-12] MEDS ORDERED: HYDROmorphone 1 MG/ML Syringe IVPUSH ONE (21:35)
[2021-01-12] MEDS ORDERED: Metoclopramide 10 MG/2 ML SDV IVPUSH ONE (21:35)
--- NOTE | 2021-01-12 21:36 | EDM.PDOC ---
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 for a source of upper GI bleeding. His blood pressure also is uncontrolled since he has not been able to keep down any of his oral medications which includes Protonix 40 mg daily. Sepsis Event Note (ED) - Focused Exam Vital Signs: Vital Signs Temp Pulse Resp BP Pulse Ox 01/12/21 21:34 36.6 C 110 H 18 209/115 H 98 - My Orders Last 24 Hours: My Active Orders 01/12/21 21:42 Chest 1V Frontal [CR] Stat 01/12/21 21:43 Abdomen 1V Flat [CR] Stat 01/12/21 21:45 Sodium Chloride 0.9% [Normal Saline] 1,000 ml IV ASDIRECTED 01/12/21 22:12 EKG Documentation Completion [RC] STAT - Assessment/Plan Last 24 Hours: My Active Orders 01/12/21 21:42 Chest 1V Frontal [CR] Stat 01/12/21 21:43 Abdomen 1V Flat [CR] Stat 01/12/21 21:45 Sodium Chloride 0.9% [Normal Saline] 1,000 ml IV ASDIRECTED 01/12/21 22:12 EKG Documentation Completion [RC] STAT
[2021-01-12 21:38] VITALS: PULSE 110
[2021-01-12] MEDS ORDERED: Pantoprazole 40 MG Vial IVPUSH ONE (21:44)
[2021-01-12] MEDS ORDERED: Sodium Chloride 0.9% 1,000 ML IV SCH (21:45)
[2021-01-12] MEDS ORDERED: diphenhydrAMINE 50 MG/ML SDV IVPUSH ONE (21:50)
[2021-01-12 22:16] LABS: HEMOGLOBIN A1C 7.4 %
[2021-01-12] MEDS ORDERED: Labetalol 100 MG/20 ML MDV IVPUSH ONE (23:58)
[2021-01-13 02:30] VITALS: BP 157/121
--- NOTE | 2021-01-13 07:39 | CR ---
Chest: Frontal view of the chest was obtained. Comparison: No prior chest imaging is available. Heart size and mediastinum are normal. Lungs are clear with no acute parenchymal change. Bony structures show nothing acute. Right-sided infusion catheter is seen. Impression: 1. Right-sided infusion catheter. 2. Nothing acute is seen on frontal chest x-ray. Diagnostic code #2
--- NOTE | 2021-01-13 07:40 | CR ---
Abdomen: Supine view of the abdomen was obtained. Comparison: No prior abdominal x-ray is available, prior CT abdomen and pelvis study of 12/22/19. Bowel gas pattern is normal. Bony structures appear within normal limits. No abnormal calcifications or soft tissue abnormality is appreciated. Impression: 1. Nothing acute is appreciated on supine abdominal x-ray. Diagnostic code #1
== END 2021-01-13 00:45 | disposition home or self-care (01) ==
LOC: JD.ED 21:25
DX: K92.0 Hematemesis (principal); E10.22 Type 1 diabetes mellitus with diabetic chronic kidney disease; I12.9 Hypertensive chronic kidney disease with stage 1 through stage 4 chronic kidney disease, or unspecified chronic kidney disease; N18.30 Chronic kidney disease, stage 3 unspecified; K21.9 Gastro-esophageal reflux disease without esophagitis; E10.40 Type 1 diabetes mellitus with diabetic neuropathy, unspecified; E10.43 Type 1 diabetes mellitus with diabetic autonomic (poly)neuropathy; K31.84 Gastroparesis; E10.10 Type 1 diabetes mellitus with ketoacidosis without coma; Z91.013 Allergy to seafood; Z79.899 Other long term (current) drug therapy; Z91.018 Allergy to other foods; Z88.0 Allergy status to penicillin; Z88.8 Allergy status to other drugs, medicaments and biological substances; Z88.5 Allergy status to narcotic agent; Z20.822 Contact with and (suspected) exposure to COVID-19; R06.02 Shortness of breath; E10.65 Type 1 diabetes mellitus with hyperglycemia; Z87.891 Personal history of nicotine dependence; Z99.2 Dependence on renal dialysis
CPT/HCPCS: 36415; 71045; 74018; 80053; 80307; 83036; 83605; 83690; 83735; 83880; 85007; 85025; 85027; 85610; 85730; 86140; 93005; 96365; 96372; 96374; 96375; 99284; 99285; C9113; J1170; J1200; J1364; J1815; J2060; J2765; J3490; J7030; U0002; 93010

== ENCOUNTER 2021-02-19 01:16 | Emergency (ER) | payer MEDICARE, MEDICAID ==
[2021-02-19] MEDS ORDERED: HYDROmorphone 0.5 MG/0.5 ML Syringe IVPUSH ONE ×2 (01:50→03:09)
[2021-02-19] MEDS ORDERED: Ondansetron 4 MG/2 ML SDV IVPUSH ONE (01:50)
--- NOTE | 2021-02-19 01:54 | EDM.PDOC ---
ED HPI GENERAL MEDICAL PROBLEM - General Stated Complaint: [facility] Time Seen by Provider: 02/19/21 01:38 Source of Information: Reports: Patient History Limitations: Reports: No Limitations - History of Present Illness INITIAL COMMENTS - FREE TEXT/NARRATIVE: Mr. Jarquin is a pleasant 35-year-old gentleman with a past medical history significant for type 1 diabetes and end-stage renal disease, on hemodialysis every Saturday, , and Saturday, since approximately October 2020, who now presents the ED stating that he took his usual antihypertensive medications, including hydralazine, nifedipine, labetalol, and doxazosin, prior to his usually scheduled dialysis yesterday afternoon, 02/18/2021. He states that his blood pressure was significantly elevated at dialysis, approximately 265/170s, and that he had a headache. He was told by dialysis nurse that the dialysis may remove some of his BP meds, therefore he was advised to retake his medications once he returned home, which he did, around 18:00. He states that he vomited around 10 minutes later, however, therefore he re-took his BP medications again, and may have done so a third and even fourth time. He now presents the ED stating that his headache and nausea have persisted. He describes his headache location as bitemporal and posterior head. He is unable to describe its character. No associated photophobia or phonophobia. No visual changes, such as blurry vision, wavy lines, or flashing lights. No neurologic symptoms, such as tingling, numbness, or weakness. Here in the ED, the patient's initial BP is found to be elevated at 185/115, with slight tachycardia 102. He is otherwise hemodynamically stable, afebrile, saturating 98% on room air. His BP was 167/109 with a HR of 100 bpm when I evaluated him. He appears to be unhappy, semi-crying, however, he does not appear to be in any acute distress. Prior to yesterday afternoon, the patient denies having a recent fever, chills, sore throat, ear pain, nasal or sinus congestion, cough, dyspnea, chest pain, palpitations, constipation, diarrhea, abdominal pain, urinary symptoms, recent weight gain or weight loss, recent bloody bowel movements or black bowel movements, recent joint aches, or rashes. The patient does not have a PCP. His Fish Worm Grower is Dr. David Watts, at [facility]. He has received 2 Moderna COVID vaccinations. Upper Abdomen Pain Score (Numeric/FACES): 10 - Related Data Allergies Allergy/AdvReac Type Severity Reaction Status Date / Time iodine Allergy Severe Anaphylactic Verified 02/19/21 02:17 Shock Penicillins Allergy Severe Anaphylactic Verified 02/19/21 02:17 Shock shrimp Allergy Severe Swelling Verified 02/19/21 02:17 haloperidol [From Haldol] Allergy Cannot Verified 02/19/21 02:17 Remember shellfish derived Allergy Anaphylactic Verified 02/19/21 02:17 Shock gluten AdvReac Mild Muscle Uncoded 02/19/21 02:17 Aches Home Meds: Home Meds Insulin Aspart [NovoLOG] 0 unit SUBCUT .UP TO 60 UN DAILY 07/10/19 [History] Insulin Glarg,Human.Rec.Analog [Lantus] 50 mg SUBCUT DAILY 09/16/19 [History] Furosemide 80 mg PO DAILY 08/09/20 [History] Pantoprazole Sodium [Protonix] 40 mg PO BID 08/09/20 [History] Labetalol [Normodyne] 600 mg PO QID 10/12/20 [History] NIFEdipine [Nifedipine ER] 60 mg PO Q8H 10/12/20 [History] Calcium Acetate 667 mg PO TID 01/12/21 [History] Past Medical History HEENT History: Reports: Impaired Vision (blind right eye) Cardiovascular History: Reports: High Cholesterol, Hypertension Gastrointestinal History: Reports: Gastritis, GERD, Hiatal Hernia, Other (See Below) (Gastroparesis) Genitourinary History: Reports: Dialysis (Q , , since around October 2020) Neurological History: Reports: Neuropathy, Diabetic Psychiatric History: Reports: Anxiety (untreated) Endocrine/Metabolic History: Reports: Diabetes, Type I - Infectious Disease History Infectious Disease History: Reports: Chicken Pox, MRSA, Novel Coronavirus (Feb 2020) - Past Surgical History Cardiovascular Surgical History: Reports: Vascular Surgery (LUE AVF) GI Surgical History: Reports: Colonoscopy (x 1), EGD (x 5 or 6) Musculoskeletal Surgical History: Reports: Amputation (right BKA) Social & Family History - Tobacco Use Tobacco Use Status *Q: Former Tobacco User Years of Tobacco use: 11 Packs/Tins Daily: 1 Month/Year Tobacco Last Used: Quit 2015 Tobacco Use Comment: Started smoking 2004 - Caffeine Use Caffeine Use: Reports: None Other Caffeine Use: daily Caffeine Use Comment: patient is uncooperated - Alcohol Use Alcohol Use History: No - Recreational Drug Use Recreational Drug Use: No - Living Situation & Occupation Living situation: Reports: Single, with Family (Cousin) Occupation: Unemployed ED ROS GENERAL - Review of Systems Review Of Systems: Comprehensive ROS is negative, except as noted in HPI. ED EXAM, GENERAL - Physical Exam Exam: See Below Exam Limited By: No Limitations General Appearance: Alert, WD/WN, No Apparent Distress Eye Exam: Bilateral Eye: EOMI, Normal Inspection Ears: Normal External Exam, Hearing Grossly Normal Nose: Normal Inspection Throat/Mouth: Normal Inspection, Normal Lips, Normal Voice, No Airway Compromise Head: Atraumatic, Normocephalic Neck: Normal Inspection, Full Range of Motion Respiratory/Chest: No Respiratory Distress, Lungs Clear, Normal Breath Sounds, No Accessory Muscle Use, Other (Right chest HD catheter site C/D/I) Cardiovascular: Normal Peripheral Pulses, Regular Rate, Rhythm, No Gallop, No JVD, No Murmur, No Rub Peripheral Pulses: 3+: Radial (L), Radial (R) GI/Abdominal: Normal Bowel Sounds, Soft, Non-Tender, No Organomegaly, No Distention, No Abnormal Bruit, No Mass Back Exam: Normal Inspection, Full Range of Motion, NT Extremities: Normal Inspection, Normal Range of Motion, No Pedal Edema, Normal Capillary Refill, Other (Good thrill LUE proximal forearm AVF) Neurological: Alert, Oriented, Normal Cognition, No Motor/Sensory Deficits Psychiatric: Tearful Skin Exam: Warm, Dry, Intact, Normal Color, No Rash Course - Vital Signs Last Recorded V/S: Last Vital Signs Temp 36.9 C 02/19/21 01:30 Pulse 102 H 02/19/21 01:30 Resp 12 02/19/21 01:30 BP 188/115 H 02/19/21 01:30 Pulse Ox 98 02/19/21 01:30 - Orders/Labs/Meds Labs: Laboratory Tests 02/19/21 Range/Units 01:23 POC Glucose 370 H (70-99) mg/dL Meds: Medications Discontinued Medications Generic Name Dose Route Start Last Admin Trade Name Og PRN Reason Stop Dose Admin Hydromorphone HCl 0.5 mg 02/19/21 01:50 02/19/21 02:41 Hydromorphone 0.5 Mg/0.5 Ml Syringe IVPUSH 02/19/21 01:51 0.5 mg ONETIME ONE Administration Hydromorphone HCl 0.5 mg 02/19/21 03:09 02/19/21 03:21 Hydromorphone 0.5 Mg/0.5 Ml Syringe IVPUSH 02/19/21 03:10 0.5 mg ONETIME ONE Administration Metoclopramide HCl 10 mg 02/19/21 03:09 02/19/21 03:21 Metoclopramide 10 Mg/2 Ml Sdv IVPUSH 02/19/21 03:10 10 mg ONETIME STA Administration Ondansetron HCl 4 mg 02/19/21 01:50 02/19/21 02:42 Ondansetron 4 Mg/2 Ml Sdv IVPUSH 02/19/21 01:51 4 mg ONETIME ONE Administration - Re-Assessments/Exams Free Text/Narrative Re-Assessment/Exam: 02/19/21 01:51 As above, the patient developed a headache while getting dialysis yesterday afternoon. His blood pressure was found to be very high. He had taken his antihypertensive medications prior to dialysis, but was instructed to take them again after he returned home, which he did, however, he vomited them up, therefore he took additional doses of his hydralazine, nifedipine, labetalol, and doxazosin. He is not able to tell us the total dosage that he took. Here in the ED, he states that his headache has continued, along with nausea, but his blood pressure is down to 167/109 with a HR of 100 bpm. Since he just finished dialysis yesterday, I do not see an indication for blood work, however, I have ordered some IV Dilaudid and IV Zofran to see if we can get him more comfortable. 02/19/21 03:10 The patient reports only mild improvement in both his headache and nausea. I have therefore ordered some IV Reglan and additional IV Dilaudid. 02/19/21 04:12 The patient states that he feels a lot better than he did when he first came in. I will discharge him home. He stated that he already has a prescription for Zofran at home. Departure - Departure Time of Disposition: 04:13 Disposition: Home, Self-Care 01 Condition: Good Clinical Impression: Headache, Nausea & vomiting Hypertension Qualifiers: Hypertension type: essential hypertension Qualified Code(s): I10 - Essential (primary) hypertension - Discharge Information *PRESCRIPTION DRUG MONITORING PROGRAM REVIEWED*: Not Applicable *COPY OF PRESCRIPTION DRUG MONITORING REPORT IN PATIENT JE: Not Applicable Referrals: PCP,None [Primary Care Provider] - Susannah Watts MD [Consulting Physician] - Additional Instructions: You were seen in the emergency room after developing a headache while at dialysis yesterday, followed by nausea and vomiting at home. You were treated with 2 doses of IV Dilaudid, along with 1 dose of IV Zofran and 1 dose of IV Reglan in the ER, with significant improvement of your symptoms. You may continue to take your current medications as prescribed. You may continue to attend hemodialysis every Saturday, , and Saturday as previously scheduled. If any other problems, please do not hesitate to return to the ER. Sepsis Event Note (ED) - Focused Exam Vital Signs: Vital Signs Temp Pulse Resp BP Pulse Ox 02/19/21 01:30 36.9 C 102 H 12 188/115 H 98
[2021-02-19] MEDS ORDERED: Metoclopramide 10 MG/2 ML SDV IVPUSH STA (03:09)
[2021-02-19 04:32] VITALS: BP 165/101; PULSE 101
== END 2021-02-19 04:40 | disposition home or self-care (01) ==
LOC: JD.ED 01:16
DX: R51.9 Headache, unspecified (principal); R11.2 Nausea with vomiting, unspecified; E78.00 Pure hypercholesterolemia, unspecified; I10 Essential (primary) hypertension; K21.9 Gastro-esophageal reflux disease without esophagitis; E10.22 Type 1 diabetes mellitus with diabetic chronic kidney disease; N18.6 End stage renal disease; Z87.891 Personal history of nicotine dependence; Z88.5 Allergy status to narcotic agent; Z91.018 Allergy to other foods; Z88.8 Allergy status to other drugs, medicaments and biological substances; Z88.0 Allergy status to penicillin; Z91.013 Allergy to seafood; Z79.4 Long term (current) use of insulin; Z79.899 Other long term (current) drug therapy
CPT/HCPCS: 82947; 96374; 96375; 96376; 99284; J1170; J2405; J2765

== ENCOUNTER 2021-02-28 15:02 | Emergency (ER) | payer MEDICARE, MEDICAID ==
[2021-02-28] MEDS ORDERED: Sodium Chloride 0.9% 10 ML Syringe FLUSH PRN (15:25)
[2021-02-28] MEDS ORDERED: Prazosin 1 MG Cap PO ONE (15:27)
[2021-02-28] MEDS ORDERED: HYDROmorphone 1 MG/ML Syringe IVPUSH ONE ×2 (15:28→16:50)
[2021-02-28] MEDS ORDERED: hydrALAZINE 20 MG/ML SDV IVPUSH ONE ×2 (15:29→17:10)
[2021-02-28] MEDS ORDERED: Metoclopramide 10 MG/2 ML SDV IVPUSH ONE (15:29)
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
[2021-02-28] MEDS ORDERED: Dexamethasone 10 MG/ML SDV IVPUSH ONE (16:49)
[2021-02-28 18:18] VITALS: BP 160/93; PULSE 80
== END 2021-02-28 18:15 | disposition home or self-care (01) ==
LOC: JD.ED 15:02
DX: R51.9 Headache, unspecified (principal); I12.9 Hypertensive chronic kidney disease with stage 1 through stage 4 chronic kidney disease, or unspecified chronic kidney disease; E10.22 Type 1 diabetes mellitus with diabetic chronic kidney disease; E10.40 Type 1 diabetes mellitus with diabetic neuropathy, unspecified; N18.9 Chronic kidney disease, unspecified; E78.00 Pure hypercholesterolemia, unspecified; K21.9 Gastro-esophageal reflux disease without esophagitis; Z88.0 Allergy status to penicillin; Z91.013 Allergy to seafood; Z91.018 Allergy to other foods; Z88.5 Allergy status to narcotic agent; Z88.8 Allergy status to other drugs, medicaments and biological substances; Z79.4 Long term (current) use of insulin; Z79.899 Other long term (current) drug therapy; Z99.2 Dependence on renal dialysis
CPT/HCPCS: 96374; 96375; 96376; 99283; A9270; J0360; J1100; J1170; J2765; 99284

== ENCOUNTER 2021-03-05 03:15 | Emergency (ER) | payer MEDICARE, MEDICAID ==
[2021-03-05 03:41] VITALS: BP 203/117; PULSE 95
[2021-03-05] MEDS ORDERED: Promethazine 25 MG in Sodium Chloride 0.9% 50 ML IV ONE (04:37)
[2021-03-05] MEDS ORDERED: HYDROmorphone 1 MG/ML Syringe IVPUSH ONE (04:38)
[2021-03-05] MEDS ORDERED: Furosemide 40 MG/4 ML VIAL IVPUSH ONE (04:42)
--- NOTE | 2021-03-05 04:46 | EDM.PDOC ---
ED HPI GENERAL MEDICAL PROBLEM - General Chief Complaint: Gastrointestinal Problem Stated Complaint: [facility] Time Seen by Provider: 03/05/21 03:26 Source of Information: Reports: Patient History Limitations: Reports: No Limitations - History of Present Illness INITIAL COMMENTS - FREE TEXT/NARRATIVE: Mr. Jarquin is very pleasant 36-year-old man with a past medical history significant for type 1 diabetes melitis and end-stage renal disease, on hemodialysis every Saturday, , and Saturday, who now presents to the ED by EMS stating that he went to bed around 20:00, then woke around 02:00 with epigastric pain. He states that his pain is worse if he is upright. He states that he took his antinausea medications, but then vomited, and he noticed that there was some blood in the emesis. 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 He states that Reglan has worked okay for him in the past, but that Phenergan works better. Here in the ED, the patient's initial BP is found to be elevated at 203/117, with bradycardia of 10 bpm. He is afebrile, saturating 100% on room air. He appears to be relatively comfortable, in no acute distress. Prior to this morning, the patient denies having a recent fever, chills, sore throat, ear pain, nasal or sinus congestion, cough, dyspnea, chest pain, palpitations, constipation, diarrhea, urinary symptoms, recent weight gain or weight loss, recent bloody bowel movements or black bowel movements, recent joint aches, headaches, or rashes. The patient does not have a PCP or Rental Sales Agent. His Cup Setter Lockstitch is Dr. David Watts, at [facility]. He has received 2 (Moderna) COVID vaccinations. 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 Middle Anterior Abdomen Pain Score (Numeric/FACES): 8 - Related Data Allergies Allergy/AdvReac Type Severity Reaction Status Date / Time haloperidol [From Haldol] Allergy Severe Cannot Verified 02/28/21 15:12 Remember iodine Allergy Severe Anaphylactic Verified 02/28/21 15:12 Shock Penicillins Allergy Severe Anaphylactic Verified 02/28/21 15:12 Shock shellfish derived Allergy Severe Anaphylactic Verified 02/28/21 15:12 Shock shrimp Allergy Severe Swelling Verified 02/28/21 15:12 gluten AdvReac Severe Muscle Uncoded 02/28/21 15:12 Aches Home Meds: Home Meds Insulin Aspart [NovoLOG] 0 unit SUBCUT .UP TO 60 UN DAILY 07/10/19 [History] Insulin Glarg,Human.Rec.Analog [Lantus] 50 mg SUBCUT DAILY 09/16/19 [History] Furosemide 80 mg PO DAILY 08/09/20 [History] Pantoprazole Sodium [Protonix] 40 mg PO BID 08/09/20 [History] Labetalol [Normodyne] 600 mg PO QID 10/12/20 [History] NIFEdipine [Nifedipine ER] 60 mg PO Q8H 10/12/20 [History] Calcium Acetate 667 mg PO TID 01/12/21 [History] Prazosin HCl [Prazosin] 2 mg PO BID #120 capsule 02/28/21 [Rx] Past Medical History HEENT History: Reports: Impaired Vision (blind right eye) Cardiovascular History: Reports: High Cholesterol, Hypertension, PVD Gastrointestinal History: Reports: Gastritis, GERD, Hiatal Hernia, Other (See Below) (Gastroparesis) Genitourinary History: Reports: Dialysis (Q , Th, Sa since around October 2020) Neurological History: Reports: Neuropathy, Diabetic Psychiatric History: Reports: Anxiety (untreated) Endocrine/Metabolic History: Reports: Diabetes, Type I - Infectious Disease History Infectious Disease History: Reports: Chicken Pox, MRSA, Novel Coronavirus (Feb 2020) - Past Surgical History Cardiovascular Surgical History: Reports: Vascular Surgery (LUE AVF), Other (See Below) (Right chest HD catheter x 1) GI Surgical History: Reports: Colonoscopy (x 1), EGD (x 5 or 6) Musculoskeletal Surgical History: Reports: Amputation (right BKA) Social & Family History - Tobacco Use Tobacco Use Status *Q: Former Tobacco User Years of Tobacco use: 11 Packs/Tins Daily: 1 Month/Year Tobacco Last Used: Quit 2015 Tobacco Use Comment: Started smoking 2004 - Alcohol Use Alcohol Use History: No - Recreational Drug Use Recreational Drug Use: No - Living Situation & Occupation Living situation: Reports: Single, with Family (Cousin) Occupation: Unemployed ED ROS GENERAL - Review of Systems Review Of Systems: Comprehensive ROS is negative, except as noted in HPI. ED EXAM, GI/ABD - Physical Exam Exam: See Below Exam Limited By: No Limitations General Appearance: Alert, WD/WN, No Apparent Distress Eyes: Bilateral: Normal Appearance, EOMI Ears: Normal External Exam, Hearing Grossly Normal Nose: Normal Inspection Throat/Mouth: Normal Inspection, Normal Lips, Normal Voice, No Airway Compromise Head: Atraumatic, Normocephalic Neck: Normal Inspection, Full Range of Motion Respiratory/Chest: No Respiratory Distress, Lungs Clear, Normal Breath Sounds, No Accessory Muscle Use Cardiovascular: Normal Peripheral Pulses, Regular Rate, Rhythm, No Edema, No Gallop, No JVD, No Murmur, No Rub GI/Abdominal Exam: Normal Bowel Sounds, Soft, No Organomegaly, No Distention, No Abnormal Bruit, No Mass, Pelvis Stable, Tender (in the epigastrium, essentially nontender elsewhere) Back Exam: Normal Inspection, Full Range of Motion, NT Extremities: Normal Inspection, Normal Range of Motion, No Pedal Edema, Normal Capillary Refill, Other (Good thrill LUE AVF) Neurological: Alert, Oriented, Normal Cognition, No Motor/Sensory Deficits Psychiatric: Normal Affect Skin Exam: Warm, Dry, Intact, Normal Color, No Rash Course - Vital Signs Last Recorded V/S: Last Vital Signs Temp 36.4 C 03/05/21 03:23 Pulse 95 03/05/21 06:55 Resp 19 03/05/21 06:55 BP 203/117 H 03/05/21 03:23 Pulse Ox 100 03/05/21 06:55 - Orders/Labs/Meds Labs: Laboratory Tests 03/05/21 03/05/21 Range/Units 05:25 05:25 WBC 8.28 (4.23-9.07) K/mm3 RBC 4.97 (4.63-6.08) M/mm3 Hgb 11.3 L (13.7-17.5) gm/dl Hct 36.3 L (40.1-51.0) % MCV 73.0 L D (79.0-92.2) fl MCH 22.7 L (25.7-32.2) pg MCHC 31.1 L (32.2-35.5) g/dl RDW Std Deviation 54.3 H (35.1-43.9) fL Plt Count 227 D (163-337) K/mm3 MPV TNP Neutrophils % (Manual) 69 H (40-60) % Band Neutrophils % 0 (0-10) % Lymphocytes % (Manual) 19 L (20-40) % Atypical Lymphs % 0 % Monocytes % (Manual) 7 (2-10) % Eosinophils % (Manual) 5 (0.8-7.0) % Basophils % (Manual) 0 L (0.2-1.2) Platelet Estimate Adequate Hypochromasia 2+ moderate Basophilic Stippling 1+ slight Anisocytosis 1+ slight RBC Morph Comment Abnormal Sodium 139 (136-145) mEq/L Potassium 4.1 (3.5-5.1) mEq/L Chloride 101 (98-107) mEq/L Carbon Dioxide 31 (21-32) mEq/L Anion Gap 11.1 (5-15) BUN 37 H (7-18) mg/dL Creatinine 6.8 H (0.7-1.3) mg/dL Est Cr Clr Drug Dosing 14.67 mL/min Estimated GFR (MDRD) 11 (>60) mL/min BUN/Creatinine Ratio 5.4 L (14-18) Glucose 254 H (70-99) mg/dL Calcium 8.0 L (8.5-10.1) mg/dL Total Bilirubin 0.4 (0.2-1.0) mg/dL AST 19 (15-37) U/L ALT 21 (16-63) U/L Alkaline Phosphatase 90 (46-116) U/L Total Protein 6.8 (6.4-8.2) g/dl Albumin 3.2 L (3.4-5.0) g/dl Globulin 3.6 gm/dL Albumin/Globulin Ratio 0.9 L (1-2) Lipase 56 L (73-393) U/L Meds: Medications Discontinued Medications Generic Name Dose Route Start Last Admin Trade Name Freq PRN Reason Stop Dose Admin Furosemide 80 mg 03/05/21 04:42 03/05/21 05:25 Furosemide 40 Mg/4 Ml Vial IVPUSH 03/05/21 04:43 80 mg NOW ONE Administration Hydromorphone HCl 1 mg 03/05/21 04:38 03/05/21 05:22 Hydromorphone 1 Mg/Ml Syringe IVPUSH 03/05/21 04:39 1 mg ONETIME ONE Administration Promethazine HCl 25 mg/ Sodium 51 mls @ 100 mls/hr 03/05/21 04:37 03/05/21 05:19 Chloride IV 03/05/21 05:07 100 mls/hr ONETIME ONE Administration - Re-Assessments/Exams Free Text/Narrative Re-Assessment/Exam: 03/05/21 04:43 The patient has a history of diabetes-induced gastroparesis with recurrent abdominal pain, nausea, and vomiting. I have ordered a CBC, CMP, and lipase level. I will treat his abdominal pain with IV Dilaudid, his nausea with IV Phenergan, since he states that works the best, and his elevated BP with furosemide 80 mg IVP. 03/05/21 06:45 The patient CBC is remarkable for an H/H slightly depressed at 11.3/36.3, with remainder of his CBC being unremarkable. His CMP is remarkable for BUN/Cr significantly elevated at 37/6.8, and hyperglycemia of 254, with the remainder of his CMP being unremarkable. His lipase level is within normal limits at 56. The patient's hematemesis was most likely due to a Antoinette-Crawford tear. Following IV furosemide, the patient BP is currently 202/120, with a HR of 94 and an oxygen saturation of 100% on room air. The patient states that he feels somewhat better, and well enough to go home. He stated that he does not need any prescriptions. Departure - Departure Time of Disposition: 06:47 Disposition: Home, Self-Care 01 Condition: Good Clinical Impression: Abdominal pain, Nausea & vomiting, Gastroparesis, Antoinette-Crawford tear Hematemesis Qualifiers: Nausea presence: with nausea Qualified Code(s): K92.0 - Hematemesis Hypertension Qualifiers: Hypertension type: essential hypertension Qualified Code(s): I10 - Essential (primary) hypertension - Discharge Information *PRESCRIPTION DRUG MONITORING PROGRAM REVIEWED*: Not Applicable *COPY OF PRESCRIPTION DRUG MONITORING REPORT IN PATIENT JE: Not Applicable Instructions: Hematemesis, Antoinette-Crawford Syndrome, Gastroparesis Referrals: PCP,None [Primary Care Provider] - Susannah Watts MD [Consulting Physician] - Forms: ED Department Discharge Additional Instructions: You were seen in the emergency room after waking with upper midline abdominal pain with nausea, vomiting, and blood in your vomit. Work-up in the ER included several blood tests, all of which were unremarkable. You are not significantly anemic. You were treated with IV Phenergan, IV Dilaudid, and IV Lasix in the ER, with some improvement of your symptoms. Continue to take your current medications as prescribed. If any other problems, please do not hesitate to return to the ER.
== END 2021-03-05 07:13 | disposition home or self-care (01) ==
LOC: JD.ED 03:15
DX: K22.6 Gastro-esophageal laceration-hemorrhage syndrome (principal); E10.43 Type 1 diabetes mellitus with diabetic autonomic (poly)neuropathy; K31.84 Gastroparesis; K92.0 Hematemesis; I10 Essential (primary) hypertension; E10.40 Type 1 diabetes mellitus with diabetic neuropathy, unspecified; Z87.891 Personal history of nicotine dependence; Z88.8 Allergy status to other drugs, medicaments and biological substances; Z88.0 Allergy status to penicillin; Z91.013 Allergy to seafood; Z91.018 Allergy to other foods; Z79.899 Other long term (current) drug therapy
CPT/HCPCS: 36415; 80053; 83690; 85007; 85027; 96365; 96375; 99285; J1170; J1940; J2550; 99284

== ENCOUNTER 2021-03-11 21:08 | Emergency (ER) | payer MEDICARE, MEDICAID ==
[2021-03-11] MEDS ORDERED: Pantoprazole 40 MG Vial IVPUSH ONE (21:21)
[2021-03-11] MEDS ORDERED: Metoclopramide 10 MG/2 ML SDV IVPUSH ONE (21:22)
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
[2021-03-11] MEDS ORDERED: Pantoprazole 80 MG in Sodium Chloride 0.9% 100 ML IV SCH (21:30)
[2021-03-11] MEDS ORDERED: Sodium Chloride 0.9% 1,000 ML IV SCH (21:30)
[2021-03-11] MEDS ORDERED: HYDROmorphone 0.5 MG/0.5 ML Syringe IVPUSH ONE (22:30)
[2021-03-11] MEDS ORDERED: HYDROmorphone 1 MG/ML Syringe IVPUSH ONE (23:27)
[2021-03-11] MEDS ORDERED: LORazepam 2 MG/ML SDV IVPUSH ONE (23:27)
[2021-03-12] MEDS ORDERED: Metoclopramide 10 MG Tab PO ONE (05:47)
[2021-03-12] MEDS ORDERED: Dicyclomine 10 MG Cap PO ONE (05:47)
[2021-03-12] MEDS ORDERED: HYDROmorphone 1 MG/ML Syringe IM ONE (05:48)
[2021-03-12] MEDS ORDERED: hydrOXYzine HCl 25 MG/ML SDV IM ONE (06:40)
[2021-03-12 07:28] VITALS: BP 175/126; PULSE 88
--- NOTE | 2021-03-12 16:32 | CR ---
Abdomen: Supine view of the abdomen was obtained. Comparison: Previous abdominal x-ray of 01/12/21. Density is seen overlying the right abdomen. Please correlate as to etiology. Bowel gas pattern is normal. Bony structures appear within normal limits for the patient's age. No abnormal calcification or soft tissue abnormality is appreciated. Impression: 1. Nothing acute is seen on supine abdominal x-ray. Diagnostic code #2
== END 2021-03-12 07:28 | disposition home or self-care (01) ==
LOC: JD.ED 21:08
DX: E10.43 Type 1 diabetes mellitus with diabetic autonomic (poly)neuropathy (principal); K31.84 Gastroparesis; I10 Essential (primary) hypertension; E10.10 Type 1 diabetes mellitus with ketoacidosis without coma; E10.621 Type 1 diabetes mellitus with foot ulcer; Z20.822 Contact with and (suspected) exposure to COVID-19; Z88.0 Allergy status to penicillin; Z91.013 Allergy to seafood; Z88.8 Allergy status to other drugs, medicaments and biological substances; R06.02 Shortness of breath
CPT/HCPCS: 36415; 74018; 80048; 80053; 83690; 83735; 83880; 84484; 85025; 85610; 85730; 86140; 86850; 86900; 86901; 96365; 96366; 96372; 96375; 96376; 99284; A9270; C9113; J1170; J2060; J2765; J3410; J7030; U0002; 99283

== ENCOUNTER 2021-03-17 10:05 | Emergency (ER) | payer MEDICARE, MEDICAID ==
[2021-03-17] MEDS ORDERED: Pantoprazole 40 MG Vial IVPUSH ONE (10:43)
[2021-03-17] MEDS ORDERED: Sodium Chloride 0.9% 10 ML Syringe FLUSH PRN (10:43)
[2021-03-17] MEDS ORDERED: Ondansetron 4 MG/2 ML SDV IVPUSH ONE (10:43)
[2021-03-17] MEDS ORDERED: HYDROmorphone 1 MG/ML Syringe IVPUSH ONE (10:43)
[2021-03-17] MEDS ORDERED: Sodium Chloride 0.9% 1,000 ML IV SCH (10:45)
--- NOTE | 2021-03-17 12:36 | CR ---
Chest: Portable view of the chest was obtained. Comparison: Prior chest x-ray of 01/12/21. Heart size and mediastinum are normal. Right-sided infusion catheter is seen. Lungs are clear with no acute parenchymal change. Bony structures show nothing acute. Impression: 1. Nothing acute is seen on portable chest x-ray. 2. No change from previous chest x-ray is present. Diagnostic code #2
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
[2021-03-17] MEDS ORDERED: Metoclopramide 10 MG/2 ML SDV IVPUSH ONE (14:09)
[2021-03-17 16:02] VITALS: BP 178/116; PULSE 106
== END 2021-03-17 15:12 | disposition home or self-care (01) ==
LOC: JD.ED 10:05
DX: R10.10 Upper abdominal pain, unspecified (principal); R11.2 Nausea with vomiting, unspecified; E78.00 Pure hypercholesterolemia, unspecified; I10 Essential (primary) hypertension; K21.9 Gastro-esophageal reflux disease without esophagitis; E10.40 Type 1 diabetes mellitus with diabetic neuropathy, unspecified; Z88.0 Allergy status to penicillin; Z91.013 Allergy to seafood; Z91.018 Allergy to other foods; Z86.16 Personal history of COVID-19; Z20.822 Contact with and (suspected) exposure to COVID-19
CPT/HCPCS: 36415; 36600; 71045; 80053; 82803; 83690; 85025; 86140; 96374; 96375; 99284; C9113; J1170; J2405; J2765; J7030; U0002

== ENCOUNTER 2021-04-05 19:30 | Emergency (ER) | payer MEDICARE, MEDICAID ==
[2021-04-05 19:36] VITALS: PULSE 109
[2021-04-05] MEDS ORDERED: HYDROmorphone 1 MG/ML Syringe IVPUSH ONE (19:50)
[2021-04-05] MEDS ORDERED: Promethazine 25 MG in Sodium Chloride 0.9% 50 ML IV ONE (19:51)
[2021-04-05] MEDS ORDERED: Pantoprazole 40 MG Vial IVPUSH ONE (19:52)
[2021-04-05] MEDS ORDERED: Labetalol 100 MG/20 ML MDV IVPUSH ONE (19:56)
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
[2021-04-05] MEDS: Prazosin 1 MG Cap PO ONE ×2 (20:32→20:34)
[2021-04-05] MEDS ORDERED: Ondansetron 4 MG Tab.DIS PO ONE (21:49)
== END 2021-04-05 22:12 | disposition home or self-care (01) ==
LOC: JD.ED 19:30
DX: R10.10 Upper abdominal pain, unspecified (principal); E10.65 Type 1 diabetes mellitus with hyperglycemia; E10.43 Type 1 diabetes mellitus with diabetic autonomic (poly)neuropathy; K31.84 Gastroparesis; I12.9 Hypertensive chronic kidney disease with stage 1 through stage 4 chronic kidney disease, or unspecified chronic kidney disease; E10.10 Type 1 diabetes mellitus with ketoacidosis without coma; E10.22 Type 1 diabetes mellitus with diabetic chronic kidney disease; N18.9 Chronic kidney disease, unspecified; K21.9 Gastro-esophageal reflux disease without esophagitis; E78.00 Pure hypercholesterolemia, unspecified; Z88.0 Allergy status to penicillin; Z91.018 Allergy to other foods; Z88.5 Allergy status to narcotic agent; Z91.013 Allergy to seafood; Z91.19 Patient's noncompliance with other medical treatment and regimen; Z79.899 Other long term (current) drug therapy
CPT/HCPCS: 36415; 80053; 82009; 83690; 85025; 86140; 96365; 96375; 99284-25; A9270-GY; C9113; J1170; J2550; J3490

== ENCOUNTER 2021-04-06 01:50 | Emergency (ER) | payer MEDICARE, MEDICAID ==
[2021-04-06] MEDS ORDERED: hydrALAZINE 20 MG/ML SDV IM STA (02:05)
[2021-04-06] MEDS ORDERED: Insulin Regular, Human 100 Units/ML 3 ML Vial SUBCUT STA (02:06)
--- NOTE | 2021-04-06 02:50 | EDM.PDOC ---
ED HPI GENERAL MEDICAL PROBLEM - General Chief Complaint: Abdominal Pain Stated Complaint: [facility] Time Seen by Provider: 04/06/21 01:55 Source of Information: Reports: Patient, Old Records (ED visit 04/05/2021) History Limitations: Reports: No Limitations - History of Present Illness INITIAL COMMENTS - FREE TEXT/NARRATIVE: Mr. Jarquin is a pleasant 36-year-old gentleman with a past medical history significant for type 1 diabetes mellitus and end-stage renal disease, on hemodialysis every Saturday, , and Saturday, with his most recent hemodialysis yesterday, 04/05/2021, who, medical records indicate, was seen in this ED last night with a complaint of abdominal pain with nausea and vomiting. He was given 4 mg of Zofran per EMS. Upon arrival to the ED, his blood pressure was found to be elevated at 239/126 with a HR of 109 bpm. He was afebrile, with an oxygen saturation of 100% on room air. His physical exam was remarkable for normoactive bowel sounds with a soft abdomen, but generalized tenderness. Work-up included a CBC, CMP, CRP, lipase level, and serum ketones. His blood glucose was found to be elevated at 318, and his serum ketones modestly elevated at 3.03. The remainder of his work-up was unremarkable. He was given 1 mg of IV Dilaudid, 25 mg of IV Phenergan, 10 mg of IV labetalol, and 40 mg of IV pantoprazole. He refused 2 mg of oral prazosin. He was discharged home with recommendation that he follow-up with his PCP. 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 He states that when his abdominal pain gets bad, he begins vomiting and is therefore unable to keep his antinausea medications down, which causes his blood pressure and blood glucose to rise. He states that he does not have a prescription for pain medication, because he does not want to get addicted to pain medications. He now returns to the ED by EMS, stating that he again has abdominal pain with hematemesis. Accu-Chek by EMS was 483. Here in the ED this morning, the patient's initial BP was found to be elevated at 217/138, with tachycardia of 109 bpm. Is afebrile, saturating 95% on room air. He appears to be uncomfortable, virtually identical to previous presentations, in no acute distress. There is no blood in his emesis bag. The patient denies having a recent fever, chills, sore throat, ear pain, nasal or sinus congestion, cough, dyspnea, chest pain, palpitations, constipation, diarrhea, urinary symptoms, recent weight gain or weight loss, recent bloody bowel movements or black bowel movements, recent joint aches, headaches, or rashes. The patient's PCP is Dr. Cristobal Henry. His Professor Of Nursing is Dr. David Watts. He has received 2 (Moderna) COVID vaccinations. Abdomen Pain Score (Numeric/FACES): 8 - Related Data Allergies Allergy/AdvReac Type Severity Reaction Status Date / Time iodine Allergy Severe Anaphylactic Verified 04/06/21 01:58 Shock Penicillins Allergy Severe Anaphylactic Verified 04/06/21 01:58 Shock shellfish derived Allergy Severe Anaphylactic Verified 04/06/21 01:58 Shock shrimp Allergy Severe Swelling Verified 04/06/21 01:58 haloperidol [From Haldol] Allergy Unknown Cannot Verified 04/06/21 01:58 Remember gluten AdvReac Mild Muscle Verified 04/06/21 01:58 Aches Home Meds: Home Meds Insulin Aspart [NovoLOG] 0 unit SUBCUT .UP TO 60 UN DAILY 07/10/19 [History] Insulin Glarg,Human.Rec.Analog [Lantus] 50 mg SUBCUT DAILY 09/16/19 [History] Furosemide 80 mg PO DAILY 08/09/20 [History] Pantoprazole Sodium [Protonix] 40 mg PO BID 08/09/20 [History] Labetalol [Normodyne] 600 mg PO QID 10/12/20 [History] NIFEdipine [Nifedipine ER] 60 mg PO Q8H 10/12/20 [History] Calcium Acetate 667 mg PO TID 01/12/21 [History] Prazosin HCl [Prazosin] 2 mg PO BID #120 capsule 02/28/21 [Rx] Dicyclomine [Bentyl] 20 mg PO Q6H PRN #5 tablet 03/12/21 [Rx] Metoclopramide HCl [Reglan] 10 mg PO Q8H #12 tablet 03/12/21 [Rx] Ondansetron [Zofran ODT] 8 mg PO Q8H #21 tab.dis 04/05/21 [Rx] Past Medical History HEENT History: Reports: Impaired Vision (blind right eye) Cardiovascular History: Reports: High Cholesterol, Hypertension, PVD Gastrointestinal History: Reports: Gastritis, GERD, Hiatal Hernia, Other (See Below) (Gastroparesis) Genitourinary History: Reports: Dialysis (Q , , Sa since around October 2020) Neurological History: Reports: Neuropathy, Diabetic Psychiatric History: Reports: Anxiety (untreated) Endocrine/Metabolic History: Reports: Diabetes, Type I - Infectious Disease History Infectious Disease History: Reports: Chicken Pox, MRSA, Multidrug-Resistant Pseudomonas (MDRP), Novel Coronavirus (dx'd Feb 2020) - Past Surgical History Cardiovascular Surgical History: Reports: Vascular Surgery (LUE AVF), Other (See Below) (Right chest HD catheter x 1) GI Surgical History: Reports: Colonoscopy (x 1), EGD (x 5 or 6) Musculoskeletal Surgical History: Reports: Amputation (right BKA) Social & Family History - Tobacco Use Tobacco Use Status *Q: Former Tobacco User Years of Tobacco use: 11 Packs/Tins Daily: 1 Month/Year Tobacco Last Used: Quit 2015 Tobacco Use Comment: Started smoking 2004 - Caffeine Use Caffeine Use: Reports: None Other Caffeine Use: daily - Alcohol Use Alcohol Use History: No - Recreational Drug Use Recreational Drug Use: No - Living Situation & Occupation Living situation: Reports: Single, with Family (Cousin) Occupation: Unemployed ED ROS GENERAL - Review of Systems Review Of Systems: Comprehensive ROS is negative, except as noted in HPI. ED EXAM, GENERAL - Physical Exam Exam: See Below Exam Limited By: No Limitations General Appearance: Alert, WD/WN, No Apparent Distress Eye Exam: Bilateral Eye: EOMI, Normal Inspection Ears: Normal External Exam, Hearing Grossly Normal Nose: Normal Inspection Throat/Mouth: Normal Inspection, Normal Lips, Normal Voice, No Airway Compromise Head: Atraumatic, Normocephalic Neck: Normal Inspection, Full Range of Motion Respiratory/Chest: No Respiratory Distress, Lungs Clear, Normal Breath Sounds, No Accessory Muscle Use Cardiovascular: Normal Peripheral Pulses, Regular Rate, Rhythm, No Edema, No Gallop, No JVD, No Murmur, No Rub Peripheral Pulses: 3+: Radial (L), Radial (R) GI/Abdominal: Normal Bowel Sounds, Soft, No Organomegaly, No Distention, No Abnormal Bruit, No Mass, Tender (mild, generalized, non-focal) Back Exam: Normal Inspection, Full Range of Motion, NT Extremities: Normal Range of Motion, No Pedal Edema, Normal Capillary Refill, Other (Good thrill LUE AVF. Right BKA.) Neurological: Alert, Oriented, Normal Cognition, No Motor/Sensory Deficits Psychiatric: Normal Affect Skin Exam: Warm, Dry, Intact, Normal Color, No Rash Course - Vital Signs Last Recorded V/S: Last Vital Signs Temp 36.7 C 04/06/21 01:55 Pulse 110 H 04/06/21 03:36 Resp 20 04/06/21 03:36 BP 170/96 H 04/06/21 03:36 Pulse Ox 97 04/06/21 03:36 - Orders/Labs/Meds Orders: Active Orders 24 hr Category Date Time Status Accu Check [Blood Glucose Check, Bedside] [RC] ONETIME Care 04/06/21 03:50 Active Labs: Laboratory Tests 04/06/21 Range/Units 02:47 POC Glucose 323 H (70-99) mg/dL Meds: Medications Discontinued Medications Generic Name Dose Route Start Last Admin Trade Name Freq PRN Reason Stop Dose Admin Hydralazine HCl 20 mg 04/06/21 02:05 04/06/21 02:41 Hydralazine 20 Mg/Ml Sdv IM 04/06/21 02:06 20 mg ONETIME STA Administration Hydromorphone HCl 1 mg 04/06/21 05:13 04/06/21 05:29 Hydromorphone 1 Mg/Ml Syringe IVPUSH 04/06/21 05:14 1 mg ONETIME ONE Administration Erythromycin Lactobionate 238 100 mls @ 100 mls/hr 04/06/21 05:12 04/06/21 06:00 mg/ Sodium Chloride IV 04/06/21 06:11 100 mls/hr ONETIME STA Administration Promethazine HCl 25 mg/ Sodium 51 mls @ 100 mls/hr 04/06/21 05:14 04/06/21 06:03 Chloride IV 04/06/21 05:44 100 mls/hr ONETIME ONE Administration Insulin Human Regular 10 unit 04/06/21 02:06 04/06/21 06:08 Insulin Regular, Human 100 Units/Ml 3 Ml Vial SUBCUT 04/06/21 02:07 Not Given ONETIME STA - Re-Assessments/Exams Free Text/Narrative Re-Assessment/Exam: 04/06/21 02:49 I ordered 20 mg of IM hydralazine and 10 units of regular insulin SQ. Notified by April HAMMONDS that the patient accepted the hydralazine, but refused the insulin. 04/06/21 05:15 The patient reported that IV erythromycin has worked for his nausea in the past, therefore I have ordered 238 mg (3 mg/kg) to be given over 45 minutes. He will also be given some IV Dilaudid and IV promethazine. 04/06/21 07:00 The erythromycin has finished infusing. He is due for dialysis this morning. I will discharge the patient home with instructions to follow-up with his PCP to create a plan to deal with his recurrent abdominal pain. Departure - Departure Time of Disposition: 07:00 Disposition: Home, Self-Care 01 Condition: Good Clinical Impression: Recurrent abdominal pain, Nausea & vomiting - Discharge Information *PRESCRIPTION DRUG MONITORING PROGRAM REVIEWED*: No *COPY OF PRESCRIPTION DRUG MONITORING REPORT IN PATIENT JE: No Referrals: Cristobal Henry MD [Physician] - Susannah Watts MD [Consulting Physician] - Forms: ED Department Discharge Additional Instructions: You were seen in the emergency room for recurrent abdominal pain with nausea and vomiting. Your blood pressure was found to be elevated, and your blood sugar high at 483. You were treated with IV hydralazine to lower your blood pressure, an infusion of erythromycin and Phenergan to treat your nausea, and IV Dilaudid to treat your pain. You refused insulin to treat your high blood sugar. You may proceed with your usually scheduled hemodialysis today. We recommend that you follow-up with your PCP, Dr. Cristobal Henry, to develop a plan for what to do about your recurrent abdominal pain. Repeated presentations to the ER is not a plan. If any other problems, please do not hesitate to return to the ER. Sepsis Event Note (ED) - Evaluation Sepsis Screening Result: No Definite Risk - Focused Exam Vital Signs: Vital Signs Temp Pulse Resp BP Pulse Ox 04/06/21 03:36 110 H 20 170/96 H 97 04/06/21 01:55 36.7 C 109 H 18 217/138 H 95 - My Orders Last 24 Hours: My Active Orders 04/06/21 03:50 Accu Check [Blood Glucose Check, Bedside] [RC] ONETIME - Assessment/Plan Last 24 Hours: My Active Orders 04/06/21 03:50 Accu Check [Blood Glucose Check, Bedside] [RC] ONETIME
[2021-04-06] MEDS ORDERED: ERYTHROMYCIN LACTOBIONATE IV STA (05:12)
[2021-04-06] MEDS ORDERED: SODIUM CHLORIDE 0.9% IV STA (05:12)
[2021-04-06] MEDS ORDERED: HYDROmorphone 1 MG/ML Syringe IVPUSH ONE (05:13)
[2021-04-06] MEDS ORDERED: Promethazine 25 MG in Sodium Chloride 0.9% 50 ML IV ONE (05:14)
[2021-04-06 11:02] VITALS: BP 183/102; PULSE 103
== END 2021-04-06 08:45 | disposition home or self-care (01) ==
LOC: JD.ED 01:50
DX: R10.9 Unspecified abdominal pain (principal); R10.817 Generalized abdominal tenderness; R11.2 Nausea with vomiting, unspecified; I12.9 Hypertensive chronic kidney disease with stage 1 through stage 4 chronic kidney disease, or unspecified chronic kidney disease; E10.40 Type 1 diabetes mellitus with diabetic neuropathy, unspecified; E10.22 Type 1 diabetes mellitus with diabetic chronic kidney disease; N18.6 End stage renal disease; K31.84 Gastroparesis; E78.00 Pure hypercholesterolemia, unspecified; K21.9 Gastro-esophageal reflux disease without esophagitis; Z87.891 Personal history of nicotine dependence; Z88.0 Allergy status to penicillin; Z91.018 Allergy to other foods; Z88.5 Allergy status to narcotic agent; Z91.013 Allergy to seafood; Z88.8 Allergy status to other drugs, medicaments and biological substances
CPT/HCPCS: 82947; 96365; 96367; 96372; 96375; 99284-25; J0360; J1170; J1364; J1815-GY; J2550

== ENCOUNTER 2021-04-30 17:44 | Emergency (ER) | payer MEDICARE, MEDICAID ==
[2021-04-30] MEDS ORDERED: Promethazine 25 MG in Sodium Chloride 0.9% 50 ML IV ONE (17:57)
[2021-04-30] MEDS ORDERED: Pantoprazole 40 MG Vial IVPUSH ONE (18:01)
[2021-04-30] MEDS ORDERED: HYDROmorphone 1 MG/ML Syringe IVPUSH ONE (18:02)
[2021-04-30] MEDS ORDERED: Labetalol 100 MG/20 ML MDV IVPUSH ONE (18:05)
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
[2021-04-30 18:31] VITALS: BP 185/105; PULSE 95
[2021-04-30] MEDS ORDERED: Magnesium Citrate Solution 296 ML Bottle PO ONE (19:13)
--- NOTE | 2021-05-01 06:42 | CR ---
Abdomen: Supine and upright views of the abdomen were obtained. Comparison: Prior abdominal x-ray of 03/11/21. Bowel gas pattern appears normal. No abnormal calcifications or soft tissue abnormality is seen. No free air is identified. Impression: 1. Nothing acute is seen on 2 view abdominal x-ray. Diagnostic code #1
== END 2021-04-30 22:10 | disposition home or self-care (01) ==
LOC: JD.ED 17:44
DX: K59.09 Other constipation (principal); I12.0 Hypertensive chronic kidney disease with stage 5 chronic kidney disease or end stage renal disease; E10.22 Type 1 diabetes mellitus with diabetic chronic kidney disease; E10.43 Type 1 diabetes mellitus with diabetic autonomic (poly)neuropathy; E10.42 Type 1 diabetes mellitus with diabetic polyneuropathy; N18.6 End stage renal disease; K31.84 Gastroparesis; R11.2 Nausea with vomiting, unspecified; K21.9 Gastro-esophageal reflux disease without esophagitis; E78.00 Pure hypercholesterolemia, unspecified; Z88.8 Allergy status to other drugs, medicaments and biological substances; Z88.0 Allergy status to penicillin; Z91.013 Allergy to seafood; Z91.018 Allergy to other foods; Z88.5 Allergy status to narcotic agent; Z91.19 Patient's noncompliance with other medical treatment and regimen; Z99.2 Dependence on renal dialysis; Z79.899 Other long term (current) drug therapy
CPT/HCPCS: 36415; 74019; 80053; 82947; 83690; 85025; 86140; 96365; 96375; 99285; A9270; C9113; J1170; J2550; J3490

== ENCOUNTER 2021-05-01 17:36 | Emergency (ER) | payer MEDICARE, MEDICAID ==
[2021-05-01] MEDS ORDERED: Sodium Chloride 0.9% 10 ML Syringe FLUSH PRN (18:05)
[2021-05-01] MEDS ORDERED: Promethazine 25 MG in Sodium Chloride 0.9% 50 ML IV ONE (18:11)
[2021-05-01] MEDS ORDERED: Pantoprazole 40 MG Vial IVPUSH ONE (18:11)
[2021-05-01] MEDS ORDERED: HYDROmorphone 1 MG/ML Syringe IVPUSH ONE (18:11)
--- NOTE | 2021-05-01 18:32 | CR ---
Abdomen: Supine view of the abdomen was obtained. Comparison: Prior abdominal x-ray of 04/30/21. Bowel gas pattern appears within normal limits. No abnormal calcifications or soft tissue abnormality is seen. Bony structures show nothing acute. Impression: 1. Nothing acute is seen on supine abdominal x-ray. Diagnostic code #1
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
[2021-05-01] MEDS ORDERED: Labetalol 100 MG/20 ML MDV IVPUSH ONE ×2 (19:43→21:09)
[2021-05-01] MEDS ORDERED: diphenhydrAMINE 50 MG/ML SDV IVPUSH ONE (20:05)
[2021-05-01] MEDS ORDERED: Metoclopramide 10 MG/2 ML SDV IVPUSH ONE (20:05)
[2021-05-01 23:46] VITALS: BP 214/135; PULSE 97
--- NOTE | 2021-05-03 15:22 | PCM.EKG ---
#1 Interpretation EKG Date: 05/01/21 Time: 08:28 Rhythm: NSR Rate (Beats/Min): 100 [place]: Normal P-Wave: Present QRS: Normal ST-T: Normal QT: Normal EKG Interpretation Comments: Per Dr. Chaidez interpretation: Sinus tachycardia at 100 bpm; left ventricular hypertrophy; anterior infarct, old; prolonged QT interval; baseline wander in lead II
== END 2021-05-01 23:44 | disposition home or self-care (01) ==
LOC: JD.ED 17:36
DX: I12.9 Hypertensive chronic kidney disease with stage 1 through stage 4 chronic kidney disease, or unspecified chronic kidney disease (principal); E10.22 Type 1 diabetes mellitus with diabetic chronic kidney disease; N18.4 Chronic kidney disease, stage 4 (severe); R11.2 Nausea with vomiting, unspecified; E78.00 Pure hypercholesterolemia, unspecified; K21.9 Gastro-esophageal reflux disease without esophagitis; Z99.2 Dependence on renal dialysis; Z88.0 Allergy status to penicillin; Z91.013 Allergy to seafood; Z88.5 Allergy status to narcotic agent; Z91.018 Allergy to other foods; Z79.899 Other long term (current) drug therapy
CPT/HCPCS: 36415; 74018; 80053; 83735; 85025; 86140; 93005; 96365; 96375; 96376; 99285; C9113; J1170; J1200; J2550; J2765; J3490

== ENCOUNTER 2021-05-02 13:05 | Emergency (ER) | payer MEDICARE, MEDICAID ==
[2021-05-02] MEDS ORDERED: diphenhydrAMINE 50 MG/ML SDV IM ONE (16:15)
[2021-05-02] MEDS ORDERED: Metoclopramide 10 MG/2 ML SDV IM ONE (16:15)
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
[2021-05-02] MEDS ORDERED: Famotidine 20 MG Tab PO ONE (17:12)
[2021-05-02] MEDS ORDERED: Alum Hydrox/Mag Hydrox/Simeth 30 ML, Lidocaine 2% 15 ML PO ONE ×2 (17:12)
[2021-05-02] MEDS ORDERED: Haloperidol Lactate 5 MG/ML SDV IM ONE (17:23)
[2021-05-02] MEDS ORDERED: Pantoprazole 40 MG Vial IVPUSH ONE (18:15)
[2021-05-02] MEDS ORDERED: HYDROmorphone 1 MG/ML Syringe IM ONE (19:10)
[2021-05-02 19:36] VITALS: BP 238/155; PULSE 122
== END 2021-05-02 19:48 | disposition home or self-care (01) ==
LOC: JD.ED 13:05
DX: E10.65 Type 1 diabetes mellitus with hyperglycemia (principal); E10.43 Type 1 diabetes mellitus with diabetic autonomic (poly)neuropathy; K31.84 Gastroparesis; E10.40 Type 1 diabetes mellitus with diabetic neuropathy, unspecified; I10 Essential (primary) hypertension; K21.9 Gastro-esophageal reflux disease without esophagitis; Z88.0 Allergy status to penicillin; Z91.013 Allergy to seafood; Z88.8 Allergy status to other drugs, medicaments and biological substances; Z79.4 Long term (current) use of insulin; Z79.899 Other long term (current) drug therapy
CPT/HCPCS: 36415; 36600; 80053; 80307; 82009; 82803; 83690; 85025; 93005; 96365; 96372; 96375; 99284; C9113; J1170; J1200; J1364; J2765

== ENCOUNTER 2021-05-13 11:28 | Emergency (ER) | payer MEDICARE, MEDICAID ==
[2021-05-13] MEDS ORDERED: HYDROmorphone 1 MG/ML Syringe IM ONE (11:46)
[2021-05-13] MEDS ORDERED: Metoclopramide 10 MG/2 ML SDV IM ONE (11:47)
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
[2021-05-13 11:55] VITALS: BP 131/83; PULSE 84
[2021-05-13] MEDS ORDERED: Sodium Chloride 0.9% 10 ML Syringe FLUSH PRN (11:58)
--- NOTE | 2021-05-13 13:06 | CT ---
Head CT Technique: Multiple axial sections through the brain were obtained. Intravenous contrast was not utilized. Reconstructed coronal and axial images were obtained. Comparison: No prior intracranial imaging is available. Findings: Ventricles along with basal cisterns and sulci over the convexities are within normal limits for the patient's age. No abnormal parenchymal densities are seen. No evidence of intracranial hemorrhage is seen. No midline shift or mass-effect is seen. Bone window settings were reviewed. Visualized mastoid sinuses and paranasal sinuses show nothing acute. No acute calvarial finding is seen. Impression: 1. Nothing acute is seen on noncontrast head CT study. Diagnostic code #1
[2021-05-13] MEDS ORDERED: 50% Dextrose in Water 50 ML Syringe IVPUSH ONE (13:12)
== END 2021-05-13 15:12 | disposition home or self-care (01) ==
LOC: JD.ED 11:28
DX: G89.4 Chronic pain syndrome (principal); E10.42 Type 1 diabetes mellitus with diabetic polyneuropathy; E10.43 Type 1 diabetes mellitus with diabetic autonomic (poly)neuropathy; E10.649 Type 1 diabetes mellitus with hypoglycemia without coma; K31.84 Gastroparesis; E78.00 Pure hypercholesterolemia, unspecified; I10 Essential (primary) hypertension; K21.9 Gastro-esophageal reflux disease without esophagitis; Z88.0 Allergy status to penicillin; Z91.013 Allergy to seafood; Z91.018 Allergy to other foods; Z88.5 Allergy status to narcotic agent; Z79.899 Other long term (current) drug therapy; Z88.8 Allergy status to other drugs, medicaments and biological substances; Z99.2 Dependence on renal dialysis
CPT/HCPCS: 36415; 70450; 80053; 82947; 83605; 83690; 85007; 85027; 86140; 96372; 96374; 99285; J1170; J2765

== ENCOUNTER 2021-05-20 05:43 | Emergency (ER) | payer MEDICARE, MEDICAID ==
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
[2021-05-20 06:09] VITALS: BP 220/120; PULSE 102
[2021-05-20] MEDS ORDERED: Insulin Lispro 100 Unit/ML 3 ML KwikPen SUBCUT ONE (06:32)
[2021-05-20] MEDS ORDERED: cloNIDine 0.1 MG Tab PO ONE (06:39)
== END 2021-05-20 06:56 | disposition home or self-care (01) ==
LOC: JD.ED 05:43
DX: K92.0 Hematemesis (principal); K21.9 Gastro-esophageal reflux disease without esophagitis; E78.00 Pure hypercholesterolemia, unspecified; E10.40 Type 1 diabetes mellitus with diabetic neuropathy, unspecified; E10.10 Type 1 diabetes mellitus with ketoacidosis without coma; I10 Essential (primary) hypertension; Z91.041 Radiographic dye allergy status; Z91.013 Allergy to seafood; Z88.0 Allergy status to penicillin; Z91.018 Allergy to other foods; Z88.5 Allergy status to narcotic agent; Z79.899 Other long term (current) drug therapy
CPT/HCPCS: 36415; 80053; 82947; 83690; 85025; 85610; 85730; 86850; 86900; 86901; 99285; J1815

== ENCOUNTER 2021-05-22 20:43 | Emergency (ER) | payer MEDICARE, MEDICAID ==
[2021-05-22 20:50] VITALS: BP 171/139; PULSE 121
[2021-05-22] MEDS ORDERED: Ondansetron 4 MG/2 ML SDV IVPUSH ONE (22:26)
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
[2021-05-22] MEDS ORDERED: HYDROmorphone 1 MG/ML Syringe IVPUSH ONE (22:58)
[2021-05-23] MEDS ORDERED: HYDROmorphone 1 MG/ML Syringe IVPUSH ONE (00:05)
== END 2021-05-23 01:00 | disposition home or self-care (01) ==
LOC: JD.ED 20:43
DX: I12.0 Hypertensive chronic kidney disease with stage 5 chronic kidney disease or end stage renal disease (principal); E10.22 Type 1 diabetes mellitus with diabetic chronic kidney disease; N18.6 End stage renal disease; F11.20 Opioid dependence, uncomplicated; R11.2 Nausea with vomiting, unspecified; E78.00 Pure hypercholesterolemia, unspecified; E87.5 Hyperkalemia; Z88.0 Allergy status to penicillin; Z91.018 Allergy to other foods; Z91.041 Radiographic dye allergy status; Z91.013 Allergy to seafood; Z79.4 Long term (current) use of insulin; Z79.899 Other long term (current) drug therapy; Z76.5 Malingerer [conscious simulation]
CPT/HCPCS: 36415; 80053; 83690; 85007; 85027; 96374; 96375; 96376; 99284; J1170; J2405

== ENCOUNTER 2021-05-23 05:58 | Emergency (ER) | payer MEDICARE, MEDICAID ==
[2021-05-23 06:05] VITALS: BP 244/150; PULSE 122
[2021-05-23] MEDS ORDERED: Metoclopramide 10 MG/2 ML SDV IVPUSH STA (06:14)
[2021-05-23] MEDS ORDERED: Metoclopramide 10 MG/2 ML SDV IM ONE (06:22)
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
[2021-05-23] MEDS ORDERED: SODIUM CHLORIDE 0.9% IV STA (06:40)
[2021-05-23] MEDS ORDERED: ERYTHROMYCIN LACTOBIONATE IV STA (06:40)
== END 2021-05-23 07:20 | disposition home or self-care (01) ==
LOC: JD.ED 05:58
DX: R10.9 Unspecified abdominal pain (principal); G89.29 Other chronic pain; R11.2 Nausea with vomiting, unspecified; E87.5 Hyperkalemia; E78.00 Pure hypercholesterolemia, unspecified; I10 Essential (primary) hypertension; K21.9 Gastro-esophageal reflux disease without esophagitis; E10.40 Type 1 diabetes mellitus with diabetic neuropathy, unspecified; Z91.013 Allergy to seafood; Z88.0 Allergy status to penicillin; Z91.018 Allergy to other foods; Z88.5 Allergy status to narcotic agent; Z79.4 Long term (current) use of insulin; Z79.899 Other long term (current) drug therapy
CPT/HCPCS: 96372; 99284; J2765

== ENCOUNTER 2021-05-23 11:38 | Emergency (ER) | payer MEDICARE, MEDICAID ==
[2021-05-23 11:53] VITALS: BP 240/169; PULSE 116
[2021-05-23] MEDS ORDERED: HYDROmorphone 1 MG/ML Syringe IM ONE (12:48)
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
[2021-05-23] MEDS ORDERED: Metoclopramide 10 MG/2 ML SDV IM ONE (13:31)
== END 2021-05-23 14:46 | disposition home or self-care (01) ==
LOC: JD.ED 11:38
DX: R10.9 Unspecified abdominal pain (principal); R11.2 Nausea with vomiting, unspecified; E78.00 Pure hypercholesterolemia, unspecified; I10 Essential (primary) hypertension; K21.9 Gastro-esophageal reflux disease without esophagitis; E10.9 Type 1 diabetes mellitus without complications; Z88.0 Allergy status to penicillin; Z91.013 Allergy to seafood; Z91.018 Allergy to other foods; Z88.5 Allergy status to narcotic agent; Z91.041 Radiographic dye allergy status; Z79.899 Other long term (current) drug therapy; Z86.16 Personal history of COVID-19; Z76.5 Malingerer [conscious simulation]
CPT/HCPCS: 36415; 80053; 83690; 85025; 93005; 96372; 99284; J1170; J2765

== ENCOUNTER 2021-05-25 03:39 | Emergency (ER) | payer MEDICARE, MEDICAID ==
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
[2021-05-25 03:49] VITALS: BP 214/131; PULSE 116
[2021-05-25] MEDS ORDERED: Morphine 4 MG/ML Syringe IM ONE (03:56)
[2021-05-25] MEDS ORDERED: Metoclopramide 10 MG/2 ML SDV IM ONE (03:56)
[2021-05-25] MEDS ORDERED: diphenhydrAMINE 50 MG/ML SDV IM ONE (03:56)
[2021-05-25] MEDS ORDERED: Albuterol 0.083% 2.5 MG/3 ML Neb Soln NEB ONE (05:07)
[2021-05-25] MEDS ORDERED: Albuterol 0.083% 2.5 MG/3 ML Neb Soln ONE (05:23)
== END 2021-05-25 07:01 | disposition home or self-care (01) ==
LOC: JD.ED 03:39
DX: E10.43 Type 1 diabetes mellitus with diabetic autonomic (poly)neuropathy (principal); E10.22 Type 1 diabetes mellitus with diabetic chronic kidney disease; E10.40 Type 1 diabetes mellitus with diabetic neuropathy, unspecified; I12.0 Hypertensive chronic kidney disease with stage 5 chronic kidney disease or end stage renal disease; N18.6 End stage renal disease; K31.84 Gastroparesis; R11.2 Nausea with vomiting, unspecified; E78.00 Pure hypercholesterolemia, unspecified; Z99.2 Dependence on renal dialysis; Z88.0 Allergy status to penicillin; Z91.013 Allergy to seafood; Z91.018 Allergy to other foods; Z88.5 Allergy status to narcotic agent
CPT/HCPCS: 36415; 80053; 82009; 82803; 83690; 85025; 94640; 96372; 99284; J1200; J2270; J2765

== ENCOUNTER 2021-05-25 22:04 | Emergency (ER) | payer MEDICARE, MEDICAID ==
[2021-05-25 22:42] VITALS: BP 217/132; PULSE 121
[2021-05-25] MEDS ORDERED: Morphine 4 MG/ML Syringe IM ONE (22:56)
[2021-05-25] MEDS ORDERED: Metoclopramide 10 MG/2 ML SDV IM ONE (22:56)
[2021-05-25] MEDS ORDERED: diphenhydrAMINE 50 MG/ML SDV IM ONE (22:56)
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
== END 2021-05-26 01:11 | disposition home or self-care (01) ==
LOC: JD.ED 22:04
DX: R10.9 Unspecified abdominal pain (principal); E10.43 Type 1 diabetes mellitus with diabetic autonomic (poly)neuropathy; E10.40 Type 1 diabetes mellitus with diabetic neuropathy, unspecified; E10.22 Type 1 diabetes mellitus with diabetic chronic kidney disease; I12.0 Hypertensive chronic kidney disease with stage 5 chronic kidney disease or end stage renal disease; N18.6 End stage renal disease; K31.84 Gastroparesis; E78.00 Pure hypercholesterolemia, unspecified; Z99.2 Dependence on renal dialysis; Z88.0 Allergy status to penicillin; Z91.041 Radiographic dye allergy status; Z91.013 Allergy to seafood; Z91.018 Allergy to other foods; Z88.5 Allergy status to narcotic agent; Z79.899 Other long term (current) drug therapy
CPT/HCPCS: 36415; 80048; 82803; 85025; 96372; 99284; J1200; J2270; J2765

== ENCOUNTER 2021-05-27 10:59 | Emergency (ER) | payer MEDICARE, MEDICAID ==
[2021-05-27 11:30] VITALS: BP 163/103; PULSE 109
[2021-05-27] MEDS ORDERED: Promethazine 25 MG/ML SDV IM ONE (11:41)
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
[2021-05-27] MEDS ORDERED: HYDROmorphone 1 MG/ML Syringe IM ONE (12:22)
--- NOTE | 2021-05-28 08:14 | CT ---
Head CT Technique: Multiple axial sections through the brain were obtained. Intravenous contrast was not utilized. Reconstructed coronal and sagittal images were obtained. Comparison: Prior head CT study of 05/13/21. Findings: Ventricles along with basal cisterns and sulci over the convexities are within normal limits for the patient's age. No abnormal parenchymal densities are seen. No evidence of intracranial hemorrhage is seen. No midline shift or mass-effect is seen. Bone window settings were reviewed. Visualized mastoid sinuses and paranasal sinuses show nothing acute. No acute calvarial abnormality is appreciated. Impression: 1. Nothing acute is seen on noncontrast head CT study. Diagnostic code #1 I agree with preliminary report from [facility], finalized on 05/27/21, 1:24 PM SENIOR ENTERPRISE ARCHITECT, code 1
== END 2021-05-27 13:38 | disposition home or self-care (01) ==
LOC: JD.ED 10:59
DX: E10.43 Type 1 diabetes mellitus with diabetic autonomic (poly)neuropathy (principal); K31.84 Gastroparesis; R42 Dizziness and giddiness; E78.00 Pure hypercholesterolemia, unspecified; I10 Essential (primary) hypertension; K21.9 Gastro-esophageal reflux disease without esophagitis; Z88.0 Allergy status to penicillin; Z91.018 Allergy to other foods; Z91.013 Allergy to seafood; Z91.041 Radiographic dye allergy status; Z88.5 Allergy status to narcotic agent; Z79.899 Other long term (current) drug therapy
CPT/HCPCS: 36415; 70450; 80053; 83690; 85025; 96372; 99284; J1170; J2550

== ENCOUNTER 2021-05-27 22:15 | Emergency (ER) | payer MEDICARE, MEDICAID ==
[2021-05-27 22:27] VITALS: BP 198/122; PULSE 115
[2021-05-27] MEDS ORDERED: diphenhydrAMINE 50 MG/ML SDV IM ONE (22:52)
[2021-05-27] MEDS ORDERED: Ondansetron 4 MG Tab.DIS PO ONE (22:52)
[2021-05-27] MEDS ORDERED: Midazolam 1 MG/ML 2 ML SDV IM ONE (22:54)
[2021-05-27] MEDS ORDERED: Alum Hydrox/Mag Hydrox/Simeth 30 ML, Lidocaine 2% 15 ML PO ONE ×2 (22:55)
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
[2021-05-28] MEDS ORDERED: Pantoprazole 40 MG Tab.CR PO ONE (00:09)
== END 2021-05-28 00:38 | disposition home or self-care (01) ==
LOC: JD.ED 22:15
DX: E10.43 Type 1 diabetes mellitus with diabetic autonomic (poly)neuropathy (principal); K31.84 Gastroparesis; K20.90 Esophagitis, unspecified without bleeding; K29.50 Unspecified chronic gastritis without bleeding; I10 Essential (primary) hypertension; E78.00 Pure hypercholesterolemia, unspecified; K21.9 Gastro-esophageal reflux disease without esophagitis; Z86.16 Personal history of COVID-19; Z88.0 Allergy status to penicillin; Z88.8 Allergy status to other drugs, medicaments and biological substances
CPT/HCPCS: 36415; 85014; 85018; 96372; 99284; A9270; J1200; J2250